=== PATIENT | male | born 1965 | race Caucasian/White ===

== ENCOUNTER → 2020-12-29 15:43 | Outpatient (CLI) | payer OTHER, SELFPAY ==
--- NOTE | 2020-12-29 15:47 | XR_ITS ---
PROCEDURE: XR SHOULDER RT MIN 2V CLINICAL INDICATION: ROTATOR CUFF ARTHROPATHY OF RT SHOULDER COMPARISON: No exams were available for comparison FINDINGS: Minor degenerative changes of the right acromioclavicular joint. The glenohumeral joint is unremarkable. No acute fractures or dislocations. Bone density is normal. No periarticular calcifications. Visualized soft tissues and the right hemithorax are unremarkable. IMPRESSION: No acute fractures or dislocation. Dictated by: Mya Benitez 12/29/2020 16:32 Mya Benitez in [place] 12/29/2020 16:32
== END ==
PROVIDERS: PCP Internal Medicine Adolescent Medicine; Visit Provider Internal Medicine Adolescent Medicine
DX: M12.811 Other specific arthropathies, not elsewhere classified, right shoulder (principal)
CPT/HCPCS: 73030

== ENCOUNTER 2021-02-24 10:00 | Outpatient (RCR) | payer OTHER, SELFPAY ==
--- NOTE | 2021-01-12 12:27 | HMH.PTOPEV ---
PT Outpatient Evaluation Rehab PT Outpatient Evaluation Start: 01/12/21 11:32 Freq: Status: Active Protocol: Document 01/12/21 11:32 VALERIY (Rec: 01/12/21 12:27 PDESERCHANELX [id number]) Electronically Signed By Luciano Cortez, MARCELLE 01/12/21 11:32 Outpatient Therapy Subjective History Subjective History Pt. is a 55 year old male who presents to outpatient PT clinic w/ complaints of chronic and activity dependent RUE anterior shldr. P! of insidious onset since the beginning of this year. Pt. describes his symptoms as a burn that will shoot from the anterior shldr. inferiorly to the elbow. Pt. reports symptoms worsen w/ abduction and reaching behind his back. Pt. reports symptom relief w/ rest(adducted). Recent diagnostic imaging negative per pt. report. Pt. denies having injections for current pathology. Pt. also reports not having any RUE shldr. restrictions. 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 Current medications include Aspirin, Celecoxib, Omeprazole, and Hydrochlorothiazide. PMH includes Obstructive Sleep Apnea, R LBP!, RLE Sciatica, Obesity, A-fib, Lymphedema, Hypertension, and GERD. Chief Complaint Pain,Stiff,Weakness Symptom Type Ache,Sharp,Burning,Shooting Symptoms Relieved By Rest/Positioning Symptoms Aggravated By Physical Activity,Lifting Prior Functional Limitations None Current Functional Limitations Reaching,Lifting,Housework, Dressing,Sleeping Symptom Description Activity Dependent Level of pain today (0-10) 0 Pain scale - at its best (0-10) 0 Pain scale - at its worst (0-10) 5 Shoulder/Elbow Eval Shoulder Objective Measurements Palpation Tenderness tenderness shoulder exam standard right tenderness over the bicipital tendon right shoulder exam standard tenderness over the SA bursa shoulder right exam standard
== END 2021-04-14 09:05 | disposition home or self-care (01) ==
LOC: PT.CARL 10:00
PROVIDERS: PCP Internal Medicine Adolescent Medicine; Visit Provider Internal Medicine Adolescent Medicine
DX: M12.811 Other specific arthropathies, not elsewhere classified, right shoulder (principal)
CPT/HCPCS: 97010; 97014; 97033; 97035; 97110; 97140; 97163; G0283

== ENCOUNTER 2021-04-01 16:54 | Inpatient (IN) | payer OTHER, SELFPAY ==
[2021-04-01 16:54] VITALS: BP 130/62; PULSE 130; RESP 18; TEMP 37.7; O2SAT 94; BMI 51.2
[2021-04-01 17:15] VITALS: BMI 51.2
--- NOTE | 2021-04-01 17:16 | XR_ITS ---
PROCEDURE INFORMATION: Exam: XR Chest Exam date and time: 04/01/2021 5:16 PM Age: 55 years old Clinical indication: Other: Weakness TECHNIQUE: Imaging protocol: XR of the chest. Views: 1 view. COMPARISON: CR XR SHOULDER RT MIN 2V 12/29/2020 3:49 PM FINDINGS: Lungs: Subtle bibasilar opacities seen which may be inflammatory. Pleural spaces: Unremarkable. No pleural effusion. No pneumothorax. Heart/Mediastinum: Unremarkable. No cardiomegaly. Bones/joints: Unremarkable. IMPRESSION: Subtle bibasilar opacities seen which may be inflammatory.
--- NOTE | 2021-04-01 17:31 | ECG_ITS ---
APPROVED REPORT Exam: Resting ECG HR:129 bpm ECG Measurements Heart Rate 129 AXES VT 148 P 21 QRSd 72 QRS -21 QT 298 T 52 QTc 436 Conclusion Sinus tachycardia Poor R wave progression Abnormal ECG Electronically signed by : Michael Gaston MD 04/02/2021 22:29:16
[2021-04-01 17:45] LABS: Coronavirus 19, PCR Not Detected (NotDetected); Influenza A, PCR Not Detected (NotDetected); Influenza B, PCR Not Detected (NotDetected)
[2021-04-01 17:53] LABS: Basophils # 0.1 K/mm3 (0-0.2); Basophils % 0.5 % (0.1-2.0); Eosinophils # 0.1 K/mm3 (0.0-0.4); Eosinophils % 0.4 % (0.1-12.0); Hematocrit 45.4 % (42.0-52.0); Hemoglobin 14.7 g/dL (14.1-18.0); Lymphocytes # 0.9 K/mm3 (0.7-4.5); Lymphocytes % 4.5 % (10-50); Mean Corpuscular HGB Conc 32.3 g/dL (31.8-35.4); Mean Corpuscular Hemoglobin 26.3 pg (27.0-31.2); Mean Corpuscular Volume 81.6 fl (80-94); Mean Platelet Volume 7.5 fl (7.4-10.4); Monocytes # 0.4 K/mm3 (0.1-1.0); Monocytes % 1.8 % (1.7-9.3); Neutrophils # 19.6 K/mm3 (1.8-7.8); Neutrophils % 92.8 % (37.0-80.0); Platelet Count 380 K/mm3 (142-424); Red Blood Count 5.57 M/mm3 (4.60-6.20); Red Cell Distribution Width 15.1 % (11.5-17.5); White Blood Count 21.1 K/mm3 (4.8-10.8)
[2021-04-01 17:54] LABS: Alanine Aminotransferase 45 U/L (12-78); Albumin Level 4.2 g/dl (3.5-5.0); Albumin/Globulin Ratio 1.3 (1.1-1.8); Alkaline Phosphatase 137 U/L (38-126); Anion Gap 12.7 mEq/L (5-15); Aspartate Amino Transferase 40 U/L (17-59); Bilirubin,Total 0.7 mg/dl (0.2-1.3); Blood Urea Nitrogen 16 mg/dl (9-20); Carbon Dioxide 27 mmol/L (22.0-30.0); Chloride 100 mmol/L (98-107); Creatinine Clearance Estimated 85 mL/min (50-200); Estimated Glomerular Filt Rate 63 ml/min (>60); GFR (African American) 77 ML/MIN (>60); Globulin 3.2 g/dL (1.3-3.2); Glucose 192 mg/dl (74-100); Potassium 3.7 mmoL/L (3.5-5.1); Sodium 136 mmol/L (136-145); Total Protein,Serum 7.4 g/dl (6.3-8.2)
[2021-04-01 17:55] LABS: MANUAL DIFFERENTIAL MANUAL DIFFERENTIAL (MANUAL DIFF)
[2021-04-01 17:58] LABS: Strep Scrn Group A (Rapid) Negative (Negative)
[2021-04-01 18:03] LABS: Lactic Acid 3.5 mmol/L (0.7-2.1)
[2021-04-01 18:07] LABS: Troponin I 0.02 ng/ml (0.00-0.034)
--- NOTE | 2021-04-01 18:30 | HMH.EDWEAK ---
ED Disposition Clinical Impression: Pneumonia Disposition: Admitted As Inpatient Condition on Discharge: Good Referrals: Michael Gaston MD [Primary Care Provider] - - Critical Care Critical Care Time: No Attestation: On 04/01/21, the high probability of a clinically significant, sudden or life threatening deterioration of the following system(s) required my full and direct attention, intervention and personal management. The time I documented below is in addition to time spent performing reported procedures but includes the following listed in this critical care notation. Medical Decision Making - Medical Records MR Comment: Bilateral pneumonia and leukocytosis and elevated lactic acid. Call Dr. Gaston and he agreed on admission. Talk to the patient and he agreed on admission. Patient wants to him to be on Rocephin and azithromycin.however he is allergic to penicilline. will switch to Levaquin. - Calvin Inquiry Pt receiving controlled substance: No Calvin was queried for this patient: No Vital Signs: 04/01/21 16:54 04/01/21 19:17 Temperature 99.9 F H Temperature Source Oral Pulse Rate 110 H Pulse Rate [Right] 130 H Respiratory Rate 18 16 Blood Pressure 104/51 L Blood Pressure [Right Arm] 130/62 Blood Pressure Mean [Right Arm] 84 02 Sat by Pulse Oximetry 94 L 96 Oxygen Delivery Method Room Air Room Air - Lab Data Lab Results 04/01/21 17:25: WBC 21.1 H*, RBC 5.57, Hgb 14.7, Hct 45.4, MCV 81.6, MCH 26.3 L, MCHC 32.3, RDW 15.1, Plt Count 380, MPV 7.5, Neut % (Auto) 92.8 H, Lymph % (Auto) 4.5 L, [place] % (Auto) 1.8, Eos % (Auto) 0.4, Baso % (Auto) 0.5, Neut # (Auto) 19.6 H, Lymph # (Auto) 0.9, [place] # (Auto) 0.4, Eos # (Auto) 0.1, Baso # (Auto) 0.1, Total Counted 100, Neutrophils % (Manual) 91 H, Band Neutrophils % 4.0, Lymphocytes % (Manual) 4 L, Monocytes % (Manual) 1 L, Platelet Estimate Normal, RBC Morphology Not Reportable, Spherocytes 3+ 04/01/21 17:25: Sodium 136, Potassium 3.7, Chloride 100, Carbon Dioxide 27, Anion Gap 12.7, BUN 16, Creatinine 1.20, Estimated Creat Clear 85, Estimated GFR 63, Est GFR ( Amer) 77, Glucose 192 H, Calcium 9.0, Total Bilirubin 0.7, AST 40, ALT 45, Alkaline Phosphatase 137 H, Troponin I 0.02, Total Protein 7.4, Albumin 4.2, Globulin 3.2, Albumin/Globulin Ratio 1.3 04/01/21 17:25: Lactate 3.5 H 04/01/21 17:25: Group A Strep Rapid Negative 04/01/21 17:25: SARS-CoV-2 (PCR) Not detected, Influenza A Untype (PCR) Not detected, Influenza Type B (PCR) Not detected Result diagrams: 04/01/21 17:25 04/01/21 17:25 Orders (Tests/Meds): ED MEDICATIONS Generic Name Dose Route Start Last Admin Trade Name Freq PRN Reason Stop Dose Admin Sodium Chloride 1,000 mls @ 999 mls/hr 04/01/21 17:30 04/01/21 17:44 Sod Chlor 0.9% 1000ml Bag IV 04/01/21 18:30 999 mls/hr .Q1H1M SILVERIO Administration Levofloxacin/Dextrose 750 mg in 150 mls @ 100 mls/hr 04/01/21 19:15 04/01/21 19:21 Levofloxacin 750mg/150ml Premix IV 04/15/21 19:14 100 mls/hr Q24H SILVERIO Administration Discontinued Medications Generic Name Dose Route Start Last Admin Trade Name Freq PRN Reason Stop Dose Admin Acetaminophen 650 mg 04/01/21 17:29 04/01/21 17:45 Acetaminophen 325mg Tab PO 04/01/21 17:30 650 mg ONCE ONE Administration ORDERS Category Date Time Status Troponin I Q3H Lab 04/01/21 20:30 Ordered Troponin I Q3H Lab 04/01/21 23:30 Ordered UA [Urinalysis and Microscopic] Stat Lab 04/01/21 17:31 Ordered Blood Culture Stat Micro 04/01/21 17:16 Received Strep Screen Confirmation Stat Micro 04/01/21 17:25 Received Weakness HPI - General Chief complaint: Weakness Stated complaint: weakness Time Seen by Provider: 04/01/21 17:30 Mode of Arrival: Family Vehicle Limitations: No Limitations Description of Symptoms (Recalled from ER Triage Doc. by RN): Patient c/o general weakness and fever for the last two days. Patient denies any SOA, nausea or vomitti
[2021-04-01 18:47] LABS: Lymphocytes % 4 % (10-50); Monocytes % 1 % (2-9); Neutrophils % 91 % (42-76); Platelet Estimate Normal; Spherocytes 3+; Total Cells Counted 100
--- NOTE | 2021-04-01 19:13 | PC.NURSE ---
Paged Dr. Gaston for patient consult
[2021-04-01 19:17] VITALS: BP 104/51; PULSE 110; RESP 16; O2SAT 96
--- NOTE | 2021-04-01 19:56 | PC.NURSE ---
call placed to house for admit. KRISTIN, bilateral pneumonia
[2021-04-01 20:00] VITALS: BP 93/58; PULSE 114; RESP 19; O2SAT 95
[2021-04-01 20:30] VITALS: BP 100/50; PULSE 114; RESP 22; O2SAT 96
--- NOTE | 2021-04-01 20:44 | PC.NURSE ---
Addendum entered by Belinda To RN 04/01/21 21:13: obtained another EKG read NSR Original Note: called to pt room. pt bp 66/45 and diaphoretic. FSBS obtained 182. pt was move to w/c and liter of NS hung and pt given a drink. pt bp up to 100/58 and pt states he feels better
[2021-04-01 20:57] LABS: Troponin I 0.12 ng/ml (0.00-0.034)
[2021-04-01 21:02] VITALS: BP 100/58; PULSE 99; RESP 19; O2SAT 97
--- NOTE | 2021-04-01 21:06 | ECG_ITS ---
APPROVED REPORT Exam: Resting ECG HR:99 bpm ECG Measurements Heart Rate 99 AXES VT 166 P 15 QRSd 76 QRS 28 QT 322 T 12 QTc 413 Conclusion Normal sinus rhythm Normal ECG Electronically signed by : Michael Gaston MD 04/02/2021 22:28:18
[2021-04-01 21:08] LABS: Reflex Lactic Add Lactic Reflex
[2021-04-01 21:19] LABS: POC Glucose,Bedside 182 (70-110)
[2021-04-01 21:43] LABS: Lactic Acid Follow Up (RFLX 1) 4.1 mmol/L (0.7-2.1)
--- NOTE | 2021-04-01 21:43 | PC.NURSE ---
Critical lactic reported to SNEHA Uriostegui. SNEHA Uriostegui reported to DEANDRA Levi MD.
--- NOTE | 2021-04-01 21:56 | PC.NURSE ---
patient arrived to floor @ 21:54.
[2021-04-01 22:47] VITALS: BMI 54.6
--- NOTE | 2021-04-01 23:07 | PC.NURSE ---
Report given to 2nd floor at this time.
[2021-04-01 23:29] LABS: Reflex Lactic (2 hrs) Add Lactic Reflex
[2021-04-01 23:49] VITALS: BP 100/58; PULSE 99; RESP 18; TEMP 37.7; O2SAT 99
[2021-04-02] VITALS (7 sets, daily range): BP systolic 98–121; BP diastolic 49–70; PULSE 75–95; RESP 16–28; TEMP 36.3–37.4; O2SAT 93–98; BMI 55.0
[2021-04-02 00:08] LABS: Lactic Acid Follow up (RFLX 2) 4.9 mmol/L (0.7-2.1)
--- NOTE | 2021-04-02 00:13 | PC.NURSE ---
Critical lactic 4.9 reported to this nurse per Dipak. name and verified
[2021-04-02 01:12] LABS: Troponin I 0.11 ng/ml (0.00-0.034)
[2021-04-02 06:58] LABS: Basophils # 0.1 K/mm3 (0-0.2); Basophils % 0.3 % (0.1-2.0); Eosinophils # 0.1 K/mm3 (0.0-0.4); Eosinophils % 0.2 % (0.1-12.0); Hematocrit 38.9 % (42.0-52.0); Lymphocytes # 0.7 K/mm3 (0.7-4.5); Mean Corpuscular HGB Conc 31.9 g/dL (31.8-35.4); Mean Corpuscular Volume 84.8 fl (80-94); Mean Platelet Volume 7.2 fl (7.4-10.4); Monocytes % 2.7 % (1.7-9.3); Neutrophils # 35.3 K/mm3 (1.8-7.8); Neutrophils % 94.7 % (37.0-80.0); Platelet Count 282 K/mm3 (142-424); Red Blood Count 4.59 M/mm3 (4.60-6.20); Red Cell Distribution Width 15.4 % (11.5-17.5); White Blood Count 37.3 K/mm3 (4.8-10.8)
[2021-04-02 07:02] LABS: MANUAL DIFFERENTIAL MANUAL DIFFERENTIAL (MANUAL DIFF)
[2021-04-02 07:05] LABS: Chloride 102 mmol/L (98-107); Potassium 4.5 mmoL/L (3.5-5.1); Sodium 137 mmol/L (136-145)
[2021-04-02 07:08] LABS: Alanine Aminotransferase 43 U/L (12-78); Albumin Level 3.3 g/dl (3.5-5.0); Albumin/Globulin Ratio 1.1 (1.1-1.8); Alkaline Phosphatase 82 U/L (38-126); Anion Gap 13.5 mEq/L (5-15); Aspartate Amino Transferase 39 U/L (17-59); Bilirubin,Total 0.5 mg/dl (0.2-1.3); Blood Urea Nitrogen 22 mg/dl (9-20); Carbon Dioxide 26 mmol/L (22.0-30.0); Creatinine Clearance Estimated 57 mL/min (50-200); Estimated Glomerular Filt Rate 40 ml/min (>60); GFR (African American) 48 ML/MIN (>60); Globulin 2.9 g/dL (1.3-3.2); Total Protein,Serum 6.2 g/dl (6.3-8.2)
[2021-04-02 07:09] LABS: Glucose 196 mg/dl (74-100)
[2021-04-02 07:11] LABS: Calcium 7.8 mg/dl (8.4-10.2)
[2021-04-02 07:29] LABS: Lymphocytes % 4 % (10-50); Monocytes % 1 % (2-9); Neutrophils % 95 % (42-76); Total Cells Counted 100
[2021-04-02 07:30] LABS: Hypochromasia 1+; Microcytosis 1+; Platelet Estimate Normal
--- NOTE | 2021-04-02 07:40 | P.CONPHA_ITS ---
[facility] Pharmacy VTE Monitoring - Patient Demographics Admission date: 04/01/21 Report Date: 04/02/21 Time: 07:40 Allergies/Adverse Reactions: Patient Allergies Penicillins [PENICILLINS] Allergy (Severe, Verified 02/18/19 15:48) SWELLING Height: 1.91 m Weight: 200.686 kg Patient Problems: Current Active Problems Pneumonia (Acute) - VTE Risk Labs: VTE Related Lab Results Hgb 14.7 g/dL (14.1-18.0) 04/01/21 17:25 Hct 38.9 % (42.0-52.0) L 04/02/21 06:35 Plt Count 282 K/mm3 (142-424) D 04/02/21 06:35 BUN 22 mg/dl (9-20) H D 04/02/21 06:35 Creatinine 1.80 mg/dl (0.66-1.25) H D 04/02/21 06:35 Estimated Creat Clear 57 mL/min (50-200) 04/02/21 06:35 Was VTE Risk Assessment Performed: Yes VTE Score: 3 VTE Risk Level: Low Risk Clinical Trial Participant: No - Prophylaxis VTE Prophylaxis Ordered?: Yes Types of VTE Prophylaxis: TEDS Knee High
[2021-04-02 07:44] LABS: Hemoglobin 12.4 g/dL (14.1-18.0)
--- NOTE | 2021-04-02 08:39 | CT_ITS ---
PROCEDURE: CT ANGIO CHEST PE PROTOCOL CLINCIAL INDICATION: dyspnea, hypoxia COMPARISON: CR XR CHEST PORTABLE from 04/01/2021 TECHNIQUE: IV Contrast: 70ML Isovue 370 Axial images obtained with sagittal and coronal reformats. All CT scans at the facility use one or more dose reduction, viz: automated exposure control, ma/kV adjustment per patient size (including targeted exams where dose is matched to indication, i.e. head), or iterative reconstruction technique. FINDINGS: Exam is limited technically with poor pulmonary arterial opacification. No central pulmonary embolus is evident. Peripheral pulmonary arteries are not adequately opacified. No evidence of aortic aneurysm or dissection. No mediastinal or hilar mass. Motion artifact somewhat obscures fine detail the lungs. No lobar consolidation or collapse. No effusions. Mild atelectatic changes are present in the lower lobes. There is diffuse fatty liver infiltration. IMPRESSION: No evidence central pulmonary embolus. Peripheral pulmonary arteries not adequately opacified Mild atelectatic changes Dictated by: Landen Abreu MD 04/02/2021 10:46 Landen Abreu MD in [place] 04/02/2021 10:46
--- NOTE | 2021-04-02 08:43 | HMH.HP ---
*Admission Date: 04/01/21 *Chief complaint: Weakness and sudden onset of chills *History of present illness: 55-year-old white male with hypertension, morbid obesity with BMI greater than 55 and history of SVT in the past who presented to the emergency department yesterday afternoon with a sudden onset of internal chills and shaking. He was also extremely weak. He had been getting ready to travel to [facility] but decided he felt too badly and came to the emergency department. In the emergency department he was found to have leukocytosis, lactic acidosis, and bilateral lower lobe hazy infiltrates. Met criteria for sepsis, admitted to hospital. Blood pressure was stable. Kidney function slightly worse over baseline. I was consulted and agreed for admission, I requested that community-acquired pneumonia protocol be started with ceftriaxone and azithromycin but patient was admitted with levofloxacin ordered for antibiotics. This morning the patient feels a little better, noted that he had very minimal urine output through the day yesterday until after his second bag of IV fluids. [facility] History I have reviewed the patient's past medical history: Yes Medical History: Reports:: Hypertension Denies:: Cancer, Diabetes Mellitus Type 1, Diabetes Mellitus Type 2, MRSA *Have you ever received a pneumonia vaccine?: No *Have you received a flu vaccine this season?: No Other Surgeries: Yes: No Previous Surgery Amputation: No Fractures: No - *Social History Last grade of school completed: Some college Smoking Status: Never smoker Alcohol Intake: never *Occupational Status:: employed Housing: house Household Members: spouse, children *Travel in the last 8 weeks: None Family Hx:: Cancer, Coronary Artery Disease, Diabetes, Heart Attack, Hyperlipidemia, Hypertension, Stroke Review of Systems - Review of Systems Review of systems:: pertinent systems reviewed and negative unless documented below Meds Home Medications Medication Instructions Recorded Confirmed Type Aspirin [Aspirin 325mg Tab] 325 mg PO DAILY 04/01/21 04/01/21 History Celecoxib [Celebrex 200mg cap] 200 mg PO BID 04/01/21 04/01/21 History Omeprazole [Omeprazole 40mg 40 mg PO DAILY 04/01/21 04/01/21 History Capsule] Valsartan/Hydrochlorothiazide 1 each PO DAILY 04/01/21 04/01/21 History [Valsartan-Hctz 160-25 mg Tab] Allergies Allergy/AdvReac Type Severity Reaction Status Date / Time Penicillins [PENICILLINS] Allergy Severe SWELLING Verified 02/18/19 15:48 Exam Vital signs and Labs for Last 24 Hours: Temp Pulse Resp BP Pulse Ox 98.7 F 88 18 115/70 97 04/02/21 08:00 04/02/21 08:00 04/02/21 08:00 04/02/21 08:00 04/02/21 08:00 Laboratory Results - last 24 hr 04/01/21 17:25: WBC 21.1 H*, RBC 5.57, Hgb 14.7, Hct 45.4, MCV 81.6, MCH 26.3 L, MCHC 32.3, RDW 15.1, Plt Count 380, MPV 7.5, Neut % (Auto) 92.8 H, Lymph % (Auto) 4.5 L, [place] % (Auto) 1.8, Eos % (Auto) 0.4, Baso % (Auto) 0.5, Neut # (Auto) 19.6 H, Lymph # (Auto) 0.9, [place] # (Auto) 0.4, Eos # (Auto) 0.1, Baso # (Auto) 0.1, Total Counted 100, Neutrophils % (Manual) 91 H, Band Neutrophils % 4.0, Lymphocytes % (Manual) 4 L, Monocytes % (Manual) 1 L, Platelet Estimate Normal, RBC Morphology Not Reportable, Spherocytes 3+ 04/01/21 17:25: Sodium 136, Potassium 3.7, Chloride 100, Carbon Dioxide 27, Anion Gap 12.7, BUN 16, Creatinine 1.20, Estimated Creat Clear 85, Estimated GFR 63, Est GFR ( Amer) 77, Glucose 192 H, Calcium 9.0, Total Bilirubin 0.7, AST 40, ALT 45, Alkaline Phosphatase 137 H, Troponin I 0.02, Total Protein 7.4, Albumin 4.2, Globulin 3.2, Albumin/Globulin Ratio 1.3 04/01/21 17:25: Lactate 3.5 H 04/01/21 17:25: Group A Strep Rapid Negative 04/01/21 17:25: SARS-CoV-2 (PCR) Not detected, Influenza A Untype (PCR) Not detected, Influenza Type B (PCR) Not detected 04/01/21 20:28: Troponin I 0.12 H 04/01/21 20:44: POC Glucose 182 H 04/01/21 21:26: Lactate 4.1 H 03/22
--- NOTE | 2021-04-02 09:10 | HMH.ITSTN ---
IN SHOWER 9:08 AM FLOOR WILL CALL WHEN HES OUT SO WE CAN DO HIS CT
[2021-04-02 09:43] LABS: Adenovirus,PCR Not Detected (NotDetected); Bordetella Pertussis Not Detected (NotDetected); Chlamydophila Pneumoniae, PCR Not Detected (NotDetected); Coronavirus 229E Not Detected (NotDetected); Coronavirus NL63 Not Detected (NotDetected); Coronavirus OC43 Not Detected (NotDetected); Coronovirus HKU1,PCR Not Detected (NotDetected); Human Metapneumovirus Not Detected (NotDetected); Influenza A, PCR Not Detected (NotDetected); Influenza AH1, 2009 Not Detected (NotDetected); Influenza AH1, PCR Not Detected (NotDetected); Influenza AH3,PCR Not Detected (NotDetected); Influenza B, PCR Not Detected (NotDetected); Mycoplasma Pneumoniae, PCR Not Detected (NotDetected); Parainfluenza 1, PCR Not Detected (NotDetected); Parainfluenza 2, PCR Not Detected (NotDetected); Parainfluenza 3, PCR Not Detected (NotDetected); Parainfluenza 4, PCR Not Detected (NotDetected); Respiratory Syncytial Virus Not Detected (NotDetected); Rhinovirus/Enterovirus Not Detected (NotDetected)
--- NOTE | 2021-04-02 10:20 | HMH.PHAINT ---
clarified home medication list using list from Dr Gaston's office
--- NOTE | 2021-04-02 14:56 | PC.NURSE ---
No acute changes. Remains on room air. Lungs CTA. HR regular. +3 pitting edema noted in LLE, +1 edema noted to RLE. Abdomen soft, large, non-tender. Independent w/ adl's. Pt showered this AM. remains @ bedside. C/o chronic back pain earlier this shift. Medicated per OCT. No further needs. Call eze w/in reach.
--- NOTE | 2021-04-03 03:41 | PC.NURSE ---
No acute changes overnight. Pt A&O. No c/o pain this shift. Lungs CTA, on room air. Pt able to ambulate independently to the BR and make needs known to staff. IV patent, NS @ 200ml/hr. VSS, call light in reach, no concerns at this time.
[2021-04-03 07:36] LABS: Chloride 104 mmol/L (98-107); Sodium 137 mmol/L (136-145)
[2021-04-03 07:37] LABS: Potassium 3.9 mmoL/L (3.5-5.1)
[2021-04-03 07:39] LABS: Alanine Aminotransferase 73 U/L (12-78); Alkaline Phosphatase 109 U/L (38-126); Anion Gap 9.9 mEq/L (5-15); Aspartate Amino Transferase 71 U/L (17-59); Bilirubin,Total 0.3 mg/dl (0.2-1.3); Blood Urea Nitrogen 17 mg/dl (9-20); Carbon Dioxide 27 mmol/L (22.0-30.0); Creatinine Clearance Estimated 93 mL/min (50-200); Estimated Glomerular Filt Rate 70 ml/min (>60); GFR (African American) 85 ML/MIN (>60)
[2021-04-03 07:40] LABS: Albumin Level 3.3 g/dl (3.5-5.0); Albumin/Globulin Ratio 1.1 (1.1-1.8); Calcium 7.8 mg/dl (8.4-10.2); Globulin 3.1 g/dL (1.3-3.2); Glucose 135 mg/dl (74-100); Total Protein,Serum 6.4 g/dl (6.3-8.2)
[2021-04-03 07:43] LABS: Basophils # 0.1 K/mm3 (0-0.2); Basophils % 0.4 % (0.1-2.0); Eosinophils % 0.1 % (0.1-12.0); Hematocrit 35.3 % (42.0-52.0); Hemoglobin 11.6 g/dL (14.1-18.0); Lymphocytes # 1.3 K/mm3 (0.7-4.5); Lymphocytes % 4.6 % (10-50); Mean Corpuscular HGB Conc 32.8 g/dL (31.8-35.4); Mean Corpuscular Hemoglobin 26.8 pg (27.0-31.2); Mean Corpuscular Volume 81.9 fl (80-94); Mean Platelet Volume 7.5 fl (7.4-10.4); Monocytes % 3.5 % (1.7-9.3); Neutrophils # 24.8 K/mm3 (1.8-7.8); Neutrophils % 91.3 % (37.0-80.0); Platelet Count 280 K/mm3 (142-424); Red Blood Count 4.31 M/mm3 (4.60-6.20); Red Cell Distribution Width 15.3 % (11.5-17.5); White Blood Count 27.2 K/mm3 (4.8-10.8)
[2021-04-03 07:48] LABS: MANUAL DIFFERENTIAL MANUAL DIFFERENTIAL (MANUAL DIFF)
[2021-04-03 08:00] VITALS: BP 118/74; PULSE 92; RESP 24; TEMP 37.5; O2SAT 95
--- NOTE | 2021-04-03 08:55 | HMH.ACPN2 ---
Internal Medicine - PN: Subj *Date: 04/03/21 *Time: 09:22 Interval history: 55-year-old male with pneumonia and GBS bacteremia. Overall did well overnight. Afebrile this morning. Normotensive. Denies any nausea, vomiting, shortness of breath. Stable on room air. Complaining of worsening swelling in his leg with the IV fluids. Tolerating good p.o. intake. Voiding independently. Exam Vital signs and Labs for Last 24 Hours: Temp Pulse Resp BP Pulse Ox 97.8 F 77 16 121/68 95 04/02/21 23:49 04/02/21 23:49 04/02/21 23:49 04/02/21 23:49 04/02/21 23:49 Laboratory Results - last 24 hr 04/02/21 09:35: Chlamy pneumoniae PCR Not detected, Adenovirus (PCR) Not detected, B. pertussis DNA (PCR) Not detected, Coronavirus OC43 (PCR) Not detected, Coronavirus HKU1 (PCR) Not detected, Coronavirus 229E (PCR) Not detected, Coronavirus NL63 (PCR) Not detected, Human Metapneumovir PCR Not detected, Influenza A (H1) PCR Not detected, Influ A (H1N1/09) PCR Not detected, Influenza A (H3) PCR Not detected, Influenza Type A (PCR) Not detected, Influenza Type B (PCR) Not detected, M. pneumoniae (PCR) Not detected, Parainfluenza 1 (PCR) Not detected, Parainfluenza 2 (PCR) Not detected, Parainfluenza 3 (PCR) Not detected, Parainfluenza 4 (PCR) Not detected, RSV (PCR) Not detected, Entero/Rhino (PCR) Not detected 04/03/21 06:59: WBC 27.2 H* D, RBC 4.31 L, Hgb 11.6 L, Hct 35.3 L, MCV 81.9, MCH 26.8 L, MCHC 32.8, RDW 15.3, Plt Count 280, MPV 7.5, Neut % (Auto) 91.3 H, Lymph % (Auto) 4.6 L, [place] % (Auto) 3.5, Eos % (Auto) 0.1, Baso % (Auto) 0.4, Neut # (Auto) 24.8 H, Lymph # (Auto) 1.3, [place] # (Auto) 1.0, Eos # (Auto) 0.0, Baso # (Auto) 0.1 04/03/21 06:59: Sodium 137, Potassium 3.9, Chloride 104, Carbon Dioxide 27, Anion Gap 9.9, BUN 17, Creatinine 1.10 D, Estimated Creat Clear 93, Estimated GFR 70, Est GFR ( Amer) 85 D, Glucose 135 H, Calcium 7.8 L, Total Bilirubin 0.3, AST 71 H D, ALT 73 D, Alkaline Phosphatase 109, Total Protein 6.4, Albumin 3.3 L, Globulin 3.1, Albumin/Globulin Ratio 1.1 I & O for Last 24 hours: Intake & Output 03/31/21 04/01/21 04/02/21 04/03/21 23:59 23:59 23:59 23:59 Intake Total 6233 / 6233 Balance 6233 / 6233 Weight 198.39 kg 200.686 kg Microbiology Reports for the Last 24 Hours: Microbiology 04/01/21 17:16 Blood Blood Culture - Preliminary Gram Positive Cocci 04/01/21 17:16 Blood Blood Culture - Preliminary Gram Positive Cocci Narrative: - Constitutional no acute distress, morbidly obese - *Routine HEENT Exam Head: Present: normocephalic Eye: Present: EOMI, PERRL ENT: Present: mucous membranes moist - *Routine Neck Exam Present: supple. Absent: lymphadenopathy - *Routine Respiratory Exam Present: CTA bilaterally - *Routine Cardiovascular Exam Present: RRR - *Routine Abdominal Exam Present: soft, normoactive bowel sounds. Absent: tenderness - *Routine Extremities Exam Erythema of left lower extremity, slightly warm. 2+ edema. - *Routine Skin Exam Present: warm. Absent: rash - *Routine Neurological Exam Present: alert, oriented X3 Assessment and Plan (1) Streptococcal sepsis Status: Acute Category: Medical Code(s): A40.9 - Streptococcal sepsis, unspecified (2) Acute kidney injury Status: Acute Category: Medical Code(s): N17.9 - Acute kidney failure, unspecified (3) Pneumonia Status: Acute Category: Medical Code(s): J18.9 - Pneumonia, unspecified organism - Assessment and plan all Dx Assessment and Plan for all problems:: 55 yo M with pneumonia, edema, bacteremia and GOMEZ. 1. Blood cultures growing strep agalactiae -Continue with therapy of ceftriaxone and azithromycin. Sensitivities pending still. -We will de-escalate antibiotics when appropriate, likely transition oral regimen for discharge home if showing continued medical stability and appropriate sensitivi
[2021-04-03 10:34] LABS: Eosinophils % 2 % (0-3); Hypochromasia 1+; Lymphocytes % 4 % (10-50); Monocytes % 2 % (2-9); Neutrophils % 82 % (42-76); Platelet Estimate B; Total Cells Counted 100
[2021-04-03 10:35] LABS: Microcytosis 1+
[2021-04-03 12:00] VITALS: BP 112/63; PULSE 85; RESP 24; TEMP 37.2; O2SAT 97
[2021-04-03 13:30] VITALS: BMI 55.0
--- NOTE | 2021-04-03 14:43 | SW/DCPLANNER ---
PATIENT PRESENTED INTO THE HOSPITAL WITH WEAKNESS AND SUDDEN ONSET OF CHILLS... PATIENT RESIDES AT HOME WITH HIS AND WORKS FULLTIME.. THERE ARE NO ISSUES WITH HIM FOR DISCHARGE PLANNING BUT IT COULD BE HE MAY NEED IV ANTIBIOTIC THERAPY ONCE WE GET BLOOD CULTURES BACK... DISPOSITION COULD BE SOON OR TUESDAY...
[2021-04-03 15:12] VITALS: BP 131/85; PULSE 86; RESP 24; TEMP 36.7; O2SAT 97
--- NOTE | 2021-04-03 18:40 | INFXCTL.NOTE ---
HE IS AOX4, ABLE TO MAKE NEEDS KNOWN TO STAFF, HE HAS BEEN UP TO CHAIR T/O SHIFT, SWELLING AND REDNESS ERYTHEMA NOTED TO LEFT LOWER EXTREMITY, PT HAS BEEN ELEVATING T/O AHIFT, HE HAS NOT REQUIRED O2 SUPPORT, TOLERATING DIET WELL, NO NEEDS VOICED, NO ACUTE CHANGES
[2021-04-03 20:00] VITALS: BP 132/72; PULSE 77; RESP 18; TEMP 37.4; O2SAT 95
[2021-04-03 23:55] VITALS: BP 118/66; PULSE 66; RESP 18; TEMP 36.6; O2SAT 92
[2021-04-04 03:39] VITALS: BP 120/68; PULSE 79; RESP 16; TEMP 37.1; O2SAT 95
[2021-04-04 05:25] VITALS: BMI 55.4
--- NOTE | 2021-04-04 06:01 | PC.NURSE ---
No acute changes overnight, PT A&O. pt denied any pain t/o the shift. Pt ambulating independently to BR. IV patent and saline locked at this time. Pt able to make needs known to staff. VSS, call light in reach, no concerns at this time. will continue to monitor
[2021-04-04 07:10] LABS: Basophils # 0.1 K/mm3 (0-0.2); Basophils % 0.7 % (0.1-2.0); Eosinophils # 0.1 K/mm3 (0.0-0.4); Eosinophils % 0.9 % (0.1-12.0); Hemoglobin 11.4 g/dL (14.1-18.0); Lymphocytes # 1.8 K/mm3 (0.7-4.5); Lymphocytes % 12.5 % (10-50); Mean Corpuscular HGB Conc 31.6 g/dL (31.8-35.4); Mean Corpuscular Hemoglobin 26.3 pg (27.0-31.2); Mean Corpuscular Volume 83.4 fl (80-94); Mean Platelet Volume 7.7 fl (7.4-10.4); Monocytes # 0.6 K/mm3 (0.1-1.0); Monocytes % 4.3 % (1.7-9.3); Neutrophils # 11.8 K/mm3 (1.8-7.8); Neutrophils % 81.5 % (37.0-80.0); Platelet Count 229 K/mm3 (142-424); Red Blood Count 4.32 M/mm3 (4.60-6.20); Red Cell Distribution Width 15.3 % (11.5-17.5); White Blood Count 14.5 K/mm3 (4.8-10.8)
[2021-04-04 07:16] LABS: Chloride 102 mmol/L (98-107); Potassium 3.7 mmoL/L (3.5-5.1); Sodium 140 mmol/L (136-145)
[2021-04-04 07:19] LABS: Blood Urea Nitrogen 13 mg/dl (9-20); Creatinine Clearance Estimated 102 mL/min (50-200); Estimated Glomerular Filt Rate 78 ml/min (>60); GFR (African American) 95 ML/MIN (>60)
[2021-04-04 07:20] LABS: Anion Gap 9.7 mEq/L (5-15); Calcium 8.1 mg/dl (8.4-10.2); Carbon Dioxide 32 mmol/L (22.0-30.0); Glucose 137 mg/dl (74-100)
--- NOTE | 2021-04-04 07:35 | HMH.DCSUM ---
General - General Admission date:: 04/01/21 Discharge date: 04/04/21 HPI HPI: 55-year-old white male with hypertension, morbid obesity with BMI greater than 55 and history of SVT in the past who presented to the emergency department yesterday afternoon with a sudden onset of internal chills and shaking. He was also extremely weak. He had been getting ready to travel to [facility] but decided he felt too badly and came to the emergency department. In the emergency department he was found to have leukocytosis, lactic acidosis, and bilateral lower lobe hazy infiltrates. Met criteria for sepsis, admitted to hospital. Blood pressure was stable. Kidney function slightly worse over baseline. I was consulted and agreed for admission, I requested that community-acquired pneumonia protocol be started with ceftriaxone and azithromycin but patient was admitted with levofloxacin ordered for antibiotics. This morning the patient feels a little better, noted that he had very minimal urine output through the day yesterday until after his second bag of IV fluids. Hospital Course Hospital Course: Patient was admitted, placed on broad-spectrum antibiotics for sepsis. Blood cultures quickly returned showing group B streptococcus, coverage was narrowed to cephalosporins given his penicillin allergy. Source of infection was thought to be his leg, specifically the left calf which suffers from obesity related edema and has been red and swollen lately. Repeat cultures are negative. Acute kidney injury improved with fluids and sensitivity panels returned showing sensitivity to cephalosporins. This morning the patient was doing well, white count was improving. Acute kidney injury had resolved. Patient will be discharged home on ceftriaxone, mupirocin I we will see him in the office very quickly and make referral for lymphedema clinic. Objective Vital signs: Temp Pulse Resp BP Pulse Ox 98.7 F 79 16 120/68 95 04/04/21 03:39 04/04/21 03:39 04/04/21 03:39 04/04/21 03:39 04/04/21 03:39 no acute distress - *Routine HEENT Exam Head: Present: normocephalic Eye: Present: EOMI, PERRL ENT: Present: mucous membranes moist - *Routine Neck Exam Present: supple - *Routine Respiratory Exam Present: CTA bilaterally - *Routine Cardiovascular Exam Present: RRR - *Routine Abdominal Exam Present: soft, normoactive bowel sounds. Absent: tenderness - *Routine Extremities Exam Present: edema. Absent: cyanosis, clubbing Comments: Mild bilateral edema with improving redness on the anterior left ambrocio - *Routine Skin Exam Present: warm. Absent: rash - Detailed Eye Exam Eyelids: Bilateral normal inspection Results Labs on day of discharge: Labs from last 24 hours 04/04/21 04/04/21 04/03/21 06:30 06:30 06:59 WBC 14.5 H D RBC 4.32 L Hgb 11.4 L Hct 36.0 L MCV 83.4 MCH 26.3 L MCHC 31.6 L RDW 15.3 Plt Count 229 MPV 7.7 Neut % (Auto) 81.5 H Lymph % (Auto) 12.5 [place] % (Auto) 4.3 Eos % (Auto) 0.9 Baso % (Auto) 0.7 Neut # (Auto) 11.8 H Lymph # (Auto) 1.8 [place] # (Auto) 0.6 Eos # (Auto) 0.1 Baso # (Auto) 0.1 Total Counted Neutrophils % (Manual) Band Neutrophils % Lymphocytes % (Manual) Monocytes % (Manual) Eosinophils % (Manual) Basophils % (Manual) Metamyelocytes % Platelet Estimate Hypochromasia Microcytosis Sodium 140 137 Potassium 3.7 3.9 Chloride 102 104 Carbon Dioxide 32 H 27 Anion Gap 9.7 9.9 BUN 13 17 Creatinine 1.00 1.10 D Estimated Creat Clear 102 93 Estimated GFR 78 70 Est GFR ( Amer) 95 85 D Glucose 137 H 135 H Calcium 8.1 L 7.8 L Total Bilirubin 0.3 AST 71 H D ALT 73 D Alkaline Phosphatase 109 Total Protein 6.4 Albumin 3.3 L Globulin 3.1 Albumin/Globulin Ratio 1.1 04/03/21 06:59 WBC 27.2 H* D RBC
[2021-04-04 07:57] VITALS: BP 125/72; PULSE 68; RESP 20; TEMP 36.8; O2SAT 94
== END 2021-04-04 11:15 | disposition home or self-care (01) | DRG 871 ==
LOC: ER 19:14 → 2ND 04-02 07:20
PROVIDERS: Internal Medicine Adolescent Medicine; Admitting Provider Internal Medicine Adolescent Medicine; Emergency Provider Internal Medicine; PCP Internal Medicine Adolescent Medicine; Visit Provider Internal Medicine Adolescent Medicine
DX: A40.8 Other streptococcal sepsis (principal); J18.9 Pneumonia, unspecified organism; Z68.43 Body mass index [BMI] 50.0-59.9, adult; N17.9 Acute kidney failure, unspecified; Z20.822 Contact with and (suspected) exposure to COVID-19; E66.9 Obesity, unspecified; Z85.828 Personal history of other malignant neoplasm of skin
CPT/HCPCS: 36415; 71045; 71275; 80048; 80053; 82962; 83605; 84484; 85007; 85025; 87040; 87077; 87186; 87430; 87486; 87581; 87633; 87798; 93005; 96365; 96366; 96367; 99284; J0456; J1956; Q9967; U0003

== ENCOUNTER → 2021-04-08 07:56 | Outpatient (CLI) | payer OTHER, SELFPAY ==
--- NOTE | 2021-04-08 08:01 | CA_ITS ---
APPROVED REPORT Left Lower Extremity Venous Study for DVT. Expressive Therapist: CT Indications Lower Extremity Pain: Lower Extremity Edema: Left EDEMA, RED, ANGRY LLE, LYMPHEDEMA PT 6'3 WT 430LBS Risk Factors Obesity Medications Aspirin 325MG Vein Imaging CFV (L): compressive, spontaneous, phasic, augmentation SFJ (L): compressive, spontaneous, phasic, augmentation FEM (L): compressive, spontaneous, phasic, augmentation POP (L): compressive, spontaneous, phasic, augmentation DFV (L): compressive, spontaneous, phasic, augmentation PTV (L): Small portion visualized compressive, spontaneous, phasic, augmentation GSV (L): compressive, spontaneous, phasic, augmentation SSV (L): Not Visualized Peroneals (L):Not Visualized GAS (L): compressive, spontaneous, phasic, augmentation Findings LLE negative for DVT/SVT. Vesssels compressible Limited images due to body habatius. Mildly prominent left inguinal lymph node 5x1.3 cm Conclusion LLE negative for DVT/SVT. Vesssels compressible Limited images due to body habatius. Electronically signed by : Landen Abreu MD 04/08/2021 17:57:28
== END ==
PROVIDERS: PCP Internal Medicine Adolescent Medicine; Visit Provider Internal Medicine Adolescent Medicine
DX: I89.0 Lymphedema, not elsewhere classified (principal); A49.1 Streptococcal infection, unspecified site
CPT/HCPCS: 93971

== ENCOUNTER → 2021-04-14 16:54 | Outpatient (CLI) | payer OTHER, SELFPAY ==
--- NOTE | 2021-04-14 17:03 | MR_ITS ---
PROCEDURE: MR SHOULDER RT WO CON CLINICAL INDICATION: ROTATOR CUFF ARTHROPATHY Shoulder pain COMPARISON: CR XR SHOULDER RT MIN 2V from 12/29/2020 TECHNIQUE: Routine multiplanar multi echo sequences are performed without gadolinium enhancement. FINDINGS: Hypertrophic changes are present at the acromioclavicular joint causing impingement upon the musculotendinous junction of the supraspinatus tendon. There is mild subacromial stenosis. No evidence of rotator cuff tear. No obvious labral tear. The bicipital tendon is in place. There is a small amount fluid within the bicipital tendon sheath. Small area of subcortical increased T2 signal is present in the humeral head laterally. There are mild osteoarthritic changes the glenohumeral joint with slightly high-riding humeral head.. Minimal amount of fluid noted in the subcoracoid region. IMPRESSION: 1. No evidence of rotator cuff tear. 2. Acromioclavicular arthropathy/hypertrophy with impingement upon the anterior aspect of the musculotendinous junction of the supraspinatus tendon 3. Tenosynovitis of the bicipital tendon sheath 4. Osteoarthritic changes of the glenohumeral joint and acromioclavicular joint with a minimal amount of subcortical edema of the humeral head laterally which may be secondary to the arthropathy. Dictated by: Landen Abreu MD 04/16/2021 08:15 Landen Abreu MD in [place] 04/16/2021 08:15
== END ==
PROVIDERS: PCP Internal Medicine Adolescent Medicine; Visit Provider Internal Medicine Adolescent Medicine
DX: M12.811 Other specific arthropathies, not elsewhere classified, right shoulder (principal)
CPT/HCPCS: 73221

== ENCOUNTER 2021-05-08 13:00 | Outpatient (RCR) | payer OTHER, SELFPAY ==
--- NOTE | 2021-04-09 15:08 | HMH.PTOPWND ---
Rehab Outpt Wound Evaluation Rehab OP Wound Evaluation Start: 04/09/21 13:57 Freq: Status: Active Protocol: Document 04/09/21 14:40 PHOKRISTI (Rec: 04/09/21 15:08 PHORNE [id number]) Electronically Signed By Russ Mendiola, PT 04/09/21 14:40 Subjective/History History History Pt is 55 yowm who presents with c/o L LE edema x 1-2 wks with insidious onset of symptoms. He reports onset was very fast with L LE redness, pain, and warmth. He was admitted to the hospital and treated for sepsis. He is now continuing oral abx and feeling somewhat better, but L LE remains sore. US was neg for DVT. PMH: Prior severe injury to L LE in childhood, HTN. Subjective Subjective He reports pain now 3/10 in the L LE, was 8/10 at worst. He reports 2-3 other similar episodes with the same leg over the past 20-30 yrs. Lymphedema Eval Classification of Lymphedema Secondary Lymphedema Yes Stemmer's sign Stemmer's Sign no Stage of Lymphedema Lymphedema stages Stage II (Pitting edema, increased fibrosis w/ decreased pitting) Skin Changes Dry Skin Yes Papillomatosis Yes Redness Yes Discoloration of Skin Yes Other Changes Yes Pain Scale Pain Scale (0-10) 3 Affected Extremities Areas Affected by Lymphedema/Edema Left Lower Extremity Manual Lymphatic Drainage Treatment Area MLD Treatment Area Left Lower Extremity Wound Problems/Impairments Impairments Problems/Impairmments Palpation Tenderness,Increased Edema,Lymphedema Present, Subjective C/O Pain,Impaired Self Care/Self Management Prognosis Rehab Potential Good Clinical Impression Consistent with Diagnosis Yes Short Term Goals Number of Weeks 4 Decreased Palpation Tenderness Yes: 1/4 Decrease Edema Yes Decrease Subjective C/O Pain Yes: 2/10 Patient to Understand Lymphedema Yes Treatment and Exercises Wet Pour Mixer Goals Number of Weeks 8 Decreased Palpation Tenderness Yes: 0/4 Decrease Lymphedema Yes Decrease Subj
== END 2021-05-08 13:05 | disposition home or self-care (01) ==
LOC: PT 13:00
PROVIDERS: Visit Provider Internal Medicine Adolescent Medicine
DX: I89.0 Lymphedema, not elsewhere classified (principal)
CPT/HCPCS: 97140; 97162; 97760

== ENCOUNTER → 2021-07-10 18:56 | Outpatient (CLI) | payer OTHER, SELFPAY ==
[2021-07-10 19:49] LABS: Chloride 101 mmol/L (98-107); Potassium 3.8 mmoL/L (3.5-5.1); Sodium 140 mmol/L (136-145)
[2021-07-10 19:51] LABS: Alanine Aminotransferase 26 U/L (12-78); Aspartate Amino Transferase 32 U/L (17-59); Blood Urea Nitrogen 15 mg/dl (9-20); Estimated Glomerular Filt Rate 78 ml/min (>60); GFR (African American) 95 ML/MIN (>60)
[2021-07-10 19:52] LABS: Albumin/Globulin Ratio 1.3 (1.1-1.8); Alkaline Phosphatase 117 U/L (38-126); Anion Gap 10.8 mEq/L (5-15); Bilirubin,Total 0.3 mg/dl (0.2-1.3); Calcium 8.7 mg/dl (8.4-10.2); Carbon Dioxide 32 mmol/L (22.0-30.0); Chol/HDL Ratio 6.1 (1-3.5); Cholesterol 209 mg/dl (140-200); Globulin 3.1 g/dL (1.3-3.2); Glucose 131 mg/dl (74-100); HDL Cholesterol 34 mg/dl (40-60); Total Protein,Serum 7.1 g/dl (6.3-8.2); Triglycerides 171 mg/dl (30-150); VLDL Cholesterol 34 mg/dL (0-40)
[2021-07-10 19:54] LABS: Basophils # 0.2 K/mm3 (0-0.2); Basophils % 1.7 % (0.1-2.0); Eosinophils # 0.5 K/mm3 (0.0-0.4); Eosinophils % 4.9 % (0.1-12.0); Hematocrit 46.4 % (42.0-52.0); Hemoglobin 14.9 g/dL (14.1-18.0); Lymphocytes # 2.2 K/mm3 (0.7-4.5); Lymphocytes % 20.4 % (10-50); Mean Corpuscular HGB Conc 32.1 g/dL (31.8-35.4); Mean Corpuscular Hemoglobin 27.4 pg (27.0-31.2); Mean Corpuscular Volume 85.3 fl (80-94); Mean Platelet Volume 8.3 fl (7.4-10.4); Monocytes # 0.5 K/mm3 (0.1-1.0); Monocytes % 4.6 % (1.7-9.3); Neutrophils # 7.5 K/mm3 (1.8-7.8); Neutrophils % 68.3 % (37.0-80.0); Platelet Count 424 K/mm3 (142-424); Red Blood Count 5.44 M/mm3 (4.60-6.20); Red Cell Distribution Width 14.6 % (11.5-17.5); White Blood Count 10.9 K/mm3 (4.8-10.8)
[2021-07-10 20:03] LABS: Direct LDL Cholesterol 145.04 mg/dL (100-129)
[2021-07-10 22:08] LABS: Hemoglobin A1C 6.4 % (4.0-6.0)
== END ==
PROVIDERS: Visit Provider Nurse Practitioner Family
DX: E11.9 Type 2 diabetes mellitus without complications (principal); D64.9 Anemia, unspecified
CPT/HCPCS: 80053; 80061; 83036; 85025

== ENCOUNTER → 2021-08-10 08:40 | Outpatient (CLI) | payer OTHER, SELFPAY | PROVIDERS: Visit Provider Surgery | DX: Z01.812 Encounter for preprocedural laboratory examination (principal); Z11.52 Encounter for screening for COVID-19; Z12.11 Encounter for screening for malignant neoplasm of colon | CPT/HCPCS: C9803; U0003; U0005 ==

== ENCOUNTER 2021-08-12 09:11 | Day surgery (SDC) | payer OTHER, SELFPAY ==
[2021-08-10 10:17] VITALS: BMI 50.3
[2021-08-12 09:25] VITALS: BP 189/91; PULSE 71; RESP 18; TEMP 36.3; O2SAT 97
[2021-08-12 09:41] VITALS: O2SAT 97
--- NOTE | 2021-08-12 10:13 | HMH.SCOPE ---
- Procedure: Date: 08/12/21 Patient Date of :: 1965 Procedure Performed:: Total colonoscopy with polypectomy by snare Indications:: Patient is a 55-year-old with a history of hypertension, BMI [address] Michael Gaston for initial screening colonoscopy. Performing Provider:: Sreedhar Frank MD Referring Provider:: Michael Gaston MD Sedation:: MAC sedation Procedure:: Patient was taken to endoscopy procedure room. He was positioned in lateral decubitus position. Adequate intravenous sedation was achieved with anesthesia titration of propofol. Variable stiffness Olympus colonoscope was inserted via the anus. Was advanced to the cecum. Colonic preparation was good. Ileocecal valve and appendiceal orifice were identified. Colonoscope was slowly withdrawn through the colon with careful surveillance. There was an adenomatous appearing 8 mm polyp in the ascending colon just proximal to the hepatic flexure. This was removed in a piecemeal fashion using cold snare. Colonoscope was withdrawn through the remainder of the colon with careful surveillance. He did have some beginnings of diverticuli in the sigmoid colon. Retroflexion within the rectum revealed no evidence of any pathologic internal hemorrhoids. Colonoscope was withdrawn. Findings:: Approximately 8 mm ascending colon polyp Recommendations:: Likely repeat colonoscopy 5 years Complications:: None immediately apparent Estimated blood obtained (mL): 2
[2021-08-12 10:18] VITALS: BP 130/62; PULSE 78; RESP 18; TEMP 37.2; O2SAT 97
[2021-08-12 10:35] VITALS: BP 140/75; PULSE 84; RESP 18; TEMP 37.2; O2SAT 95
[2021-08-12 10:55] VITALS: BP 153/86; PULSE 80; RESP 16; TEMP 37.2; O2SAT 99
--- NOTE | 2021-08-12 11:54 | P.PN_ITS ---
[facility] Anesthesia Checklist - Patient Identification Patient Identification: Arm Band, Verbal (Name & ) - Structural Data Admitted From: Home Planned Operative Procedure/s: Colonoscopy Consent for Planned Operative Procedure(s) Verified: Yes Verified Documents: Surgical Consent - NPO Status Verified Time NPO: 05:00 - Cardiovascular Assessment Heart Sounds: S1 & S2 - Airway Assessment C-Spine Mobility Assessed: Yes TMJ Mobility Assessed: Yes Dentition: Good Dentition - Neurological Assessment Level of Consciousness: Awake, Alert, Appropriate - Anesthesia Plan Anesthesia Risk discussed: Yes ASA Class: III Anesthesia Type: General [facility] History I have reviewed the patient's past medical history: Yes Medical History: Reports:: Hypertension Denies:: Cancer, Diabetes Mellitus Type 1, Diabetes Mellitus Type 2, Internal Pacemaker, MRSA, Seizures *Have you ever received a pneumonia vaccine?: No *Have you received a flu vaccine this season?: No Anesthesia experience/problems:: none Other Surgeries: Yes: No Previous Surgery. No: Pacemaker Amputation: No Fractures: No - *Social History Last grade of school completed: High school graduate Smoking Status: Never smoker Alcohol Intake: current Alcohol Intake Frequency:: holidays/special occasions only Substance Use Type: denies use *Occupational Status:: employed Housing: house Household Members: spouse *Travel in the last 8 weeks: None Family Hx:: Cancer, Coronary Artery Disease
== END 2021-08-12 11:05 | disposition home or self-care (01) ==
LOC: OUTP 09:13
PROVIDERS: PCP Internal Medicine Adolescent Medicine; Visit Provider Surgery
PROC: 0DJD8ZZ Inspection of Lower Intestinal Tract, Via Natural or Artificial Opening Endoscopic (ICD-10-PCS; CPT 45385; principal; 2021-08-12 10:30)
DX: Z12.11 Encounter for screening for malignant neoplasm of colon (principal); I10 Essential (primary) hypertension; K63.5 Polyp of colon; Z80.9 Family history of malignant neoplasm, unspecified; Z82.49 Family history of ischemic heart disease and other diseases of the circulatory system; Z88.0 Allergy status to penicillin; Z79.82 Long term (current) use of aspirin; Z79.899 Other long term (current) drug therapy
CPT/HCPCS: 45385

== ENCOUNTER → 2021-08-20 17:19 | Outpatient (CLI) | payer OTHER, SELFPAY | PROVIDERS: PCP Internal Medicine Adolescent Medicine; Visit Provider Nurse Practitioner | DX: U07.1 COVID-19 (principal) | CPT/HCPCS: C9803; U0003; U0005 ==

== ENCOUNTER 2023-03-09 15:00 | Outpatient (RCR) | payer OTHER, SELFPAY ==
--- NOTE | 2023-02-11 15:05 | HMH.PTOPEV ---
PT Outpatient Evaluation Rehab PT Outpatient Evaluation Start: 02/11/23 14:00 Freq: Status: Active Protocol: Document 02/11/23 14:35 PHOKRISTI (Rec: 02/11/23 15:05 PHORKURTIS [id number]) E-signed By Russ Mendiola, PT Outpatient Therapy Subjective History Subjective History This is the initial PT eval for Macho Lynne, 57 yowm who presents with c/o pain in the medial L knee x 1-2 wks with insidious onset of symptoms. He reports pain is worse with walking up/down stairs and any twisting in wb'ing. He reports MD prescribed topical medication that has helped reduce some of his pain. 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 Chief Complaint Pain Symptom Type Sharp,Dull Symptoms Relieved By Rest/Positioning Symptoms Aggravated By Twisting Prior Functional Limitations None Current Functional Limitations Stairs Symptom Description Constant but Variable Level of pain today (0-10) 2 Pain scale - at its worst (0-10) 8 Hip/Knee Eval Palpation Tenderness left Knee Palpation Finding Tenderness Knee Palpation Overall Comment medial- pes anserine area, 2/4 MMT Hip Flexion Strength Grade 5 Normal Hip Abduction Strength Grade 5 Normal Hip Adduction Strength Grade 5 Normal Hip Extension Strength Grade 5 Normal Hip External Rotation Strength Grade 4 Good Hip Internal Rotation Strength Grade 5 Normal Knee Extension Strength Grade 5 Normal Knee Flexion Strength Grade 5 Normal ROM Knee Extension Active Range of Motion ( 0 degrees) Knee Flexion Active Range of Motion ( 0-112 degrees) Special Tests Knee Anterior Drawer Test Negative Left,Negative Right Duenas 90/90 Test (PCL) Negative Left,Negative Right Knee Anterior Reyes Test Negative Left,Negative Right Knee Valgus Stress Test Negative Left,Negative Right Knee Varus Stress Test Negative Left,Negative Right Patella Apprehension Test Negative Right,Positive Left Outpatient Therapy Assessment Impairments Problems/Impairmments Palpation Tenderness,Impaired Range of Motion,Impaired Strength,Impaired Endurance, Impaired Stair Climbing, Impaired Recreational
== END 2023-03-09 15:05 | disposition home or self-care (01) ==
LOC: PT 15:00
PROVIDERS: PCP Internal Medicine Adolescent Medicine; Visit Provider Internal Medicine Adolescent Medicine
DX: M25.562 Pain in left knee (principal)
CPT/HCPCS: 97010; 97014; 97016; 97035; 97110; 97112; 97140; 97163; 97535; G0283

== ENCOUNTER 2024-03-27 14:00 | Outpatient (RCR) | payer OTHER, SELFPAY ==
--- NOTE | 2024-02-28 16:00 | HMH.PTOPEV ---
PT Outpatient Evaluation Rehab PT Outpatient Evaluation Start: 02/28/24 14:57 Freq: Status: Active Protocol: Document 02/28/24 14:57 PDESEROUX (Rec: 02/28/24 15:59 [email or web address] Desktop) E-signed By Luciano Cortez, PT Outpatient Therapy Subjective History Subjective History Pt. is a 58 year old male who presents to [facility] Outpatient Physical Therapy Services in [place] for the initial evaluation this date( 02/28/24) w/ c/o subacute and constant L-sided cervical and shldr. P!, stiffness, and spasms of insidious onset 5 weeks ago w/ acute and intermittent L-sided cervical and shldr. numbness/tingling of insidious onset 1 week ago. Pt. denies numbness/tingling into the hand nor digits at this time. Pt. denies having any problems w/ gripping objects. However, pt. 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 Pt. also vocalizes having difficulty looking up secondary to symptomatic P!. Pt. reports having some symptom relief w/ MHP and prescribed muscle relaxer. Pt. denies having any recent diagnostic imaging nor injections for current symptom complaint. Current medication list includes Omeprazole, Atorvastatin, Celecoxib, and Aspirin. PMH includes S/P lumbar surgery, LLE knee degenerative changes, HTN, HLD, hx. covid-19. New diagnosis of cancer in past 12 No months? Chief Complaint Pain,Spasms,Stiff,Clicks, Paresthesia Symptom Type Ache,Throb,Burning,Numbness, Tingling,Shooting Symptoms Relieved By Rest/Positioning,Heat, Prescription Meds Symptoms Aggravated By Physical Activity,Twisting Prior Functional Limitations None Current Functional Limitations Desk Work/Reading,Driving, Sleeping,Recreation Activity Symptom Description Constant but Variable,Activity Dependent Level of pain today (0-10) 3 Pain scale - at its best (0-10) 1 Cervical Eval Palpation Cervical Muscles L CT Junction,L Upper Trapezius Cervical/Thoracic Palpation Findings Tenderness,Spasm,Trigger Point Posture Head/C-Spine Posture Sitting Position Neutral Position Head/C-Spine Posture Standing Position Neutral Position Flexibility Deficits Upper Trapezius Muscle Length (L) Severe Tightness Levaetor Scapulae Muscle Length (L) Severe Tightness Scalene Group Muscle Length (L) Severe Tightness Sternocleidomastoid Muscle Length (L) Severe Tightness Pectoralis Major Muscle Length (L) Severe Tightness Pectoralis Minor Muscle Length (L) Severe Tightness Passive Joint Mobility Cervical PIVM Dec: R C4/5 L C4/5 R C5/6 L C5/6 R C6/7 L C6/7 WNL: R OA L OA R AA L AA R C2/3 L C2/3 R C3/4 L C3/4 R C7/T1 L C7/T1 AROM Cervical Spine Extension Active Range of 23 Motion (degrees) Cervical Spine Flexion Active Range of 46 Motion (degrees) Cervical Spine Right Lateral Flexion 24 Active Range of Motion (degrees) Cervical Spine Left Lateral Flexion 17 Active Range of Motion (degrees) Cervical Spine Right Rotation Active 57 Range of Motion (degrees) Cervical Spine Left Rotation Active 43 Range of Motion (degrees) MMT Left Deltoid (C5) 4- Good- Biceps Brachii Strength Grade 5 Normal Wrist Extension Strength Grade 5 Normal Triceps Brachii Strength Grade 5 Normal Wrist Flexion Strength Grade 5 Normal Extensor Pollicis Longus Strength Grade 5 Normal Finger Abduction Strength Grade 5 Normal Altered Sensation Bilateral Comment light touch sensation vocalized symmetrical in BUEs Special Test C-Spine Foraminal Compression (Spurling) Positive Left Test C-spine Verterbral Accessory Movements Central P/A Adrian,Left P/A that Elicit Symptoms Adrian C-Spine Foraminal Distraction Test Positive C-Spine Compression Test Positive Left Outpatient Therapy Assessment Impairments Problems/Impairmments Palpation Tenderness,Impaired Range of Motion,Impaired Strength,Impaired Driving, Impaired Recreational Activities,Impaired Work Activities,Impaired Desk/ Computer Activities,Subjective C/O Pain,Impaired Self Care/ Self Management Prognosis Rehab Potential Good Comment w/ HEP compliancy Clinical Impression Consistent with Diagnosis Yes Consistent with cervical radiculopathy, L Short Term Goals Number of Weeks 2 Decreased Palpation Tenderness Yes: grade 1-2 +TTP to TTP assessment above Decrease Subjective C/O Pain Yes: worse:12/29 Patient to be Ind w/ HEP Yes [facility] Goals Number of Weeks 4-6 Decreased Palpation Tenderness Yes: grade 1 +TTP to TTP assessment above Increase Range of Motion Yes: cervical spine ROM WFL grossly Increase Strength Yes: ELIZABETH dunham MMT scores 4+ to 5/5 grossly w/o difficulty Increase Ability to Drive/Ride in Car Yes Improve Tolerance to Work Activities Yes: 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 Improve Neck Disability Index Score Yes Decrease Subjective C/O Pain Yes: worse:-10/01 Patient to be Ind w/ Advanced HEP Yes Outpatient Therapy Plan of Care Treatment Plan May Include Therapeutic Exercise Including Home Yes Exercise Program Manual Therapy Techniques Yes Neuromuscular Re-education Yes Therapeutic Activities to Return to Yes Previous Functional/Work Level ADL/Self Care Education Yes Mechanical Traction Yes Dry Needling Yes Thermal Modalities Yes Electrical Stimulation Yes Ultrasound/Phonophoresis Yes Iontophoresis Yes Vasopneumatic Compression Pump Yes Massage Yes Eval/Re-Eval Yes Frequency Times per week 2 Duration Number of Weeks 4-6 Addendums This patient is a candidate for social No or vocational rehab? Patient/Guardian verbally acknowledges Yes understanding of treatment program and consents to further treatment? Patient/Guardian verbally acknowledges Yes understanding of diagnosis, prognosis and goals for treatment? Eval Complexity PT Charges 92058 - Low Complexity Shoulder/Elbow Eval Shoulder Objective Measurements Elbow Objective Measurements PHYSICIAN CERTIFICATION: I certify the specified therapy services for Macho Chain are required, authorized, and reviewed every 30 days.
== END 2024-03-29 13:50 | disposition home or self-care (01) ==
LOC: PT 14:00
PROVIDERS: Visit Provider Physician Assistant
DX: M25.512 Pain in left shoulder (principal); T14.8XXA Other injury of unspecified body region, initial encounter
CPT/HCPCS: 20560; 97010; 97012; 97014; 97110; 97140; 97163; G0283

== ENCOUNTER 2024-04-30 15:00 | Outpatient (RCR) | payer OTHER, SELFPAY ==
--- NOTE | 2024-04-10 11:43 | HMH.PTOPEV ---
PT Outpatient Evaluation Rehab PT Outpatient Evaluation Start: 04/10/24 09:57 Freq: Status: Active Protocol: Document 04/10/24 09:57 PDESEROUX (Rec: 04/10/24 11:42 [email or web address] Desktop) E-signed By Luciano Cortez, PT Outpatient Therapy Subjective History Subjective History Pt. is a 58 year old male who presents to [facility] Outpatient Physical Therapy Services in [place] for the initial evaluation this date( 04/10/24) w/ c/o acute and constant RUE shldr. P!, stiffness, and weakness of insidious onset a few months ago that progressively has been getting worse in that last couple weeks. Pt. denies trauma as [place]. Pt. reports symptoms initially originated in the RUE shldr. and has progressively worsened into the biceps brachii mm. Pt. vocalizes having a history of a similar symptom complaint in the RUE shldr. that previous Physical Therapy provided some symptom relief. Pt. reports having the most relief w/ intra-muscular manual therapy w/ previous treatment. Pt. reports having difficulty or unable to perform activities behind his back secondary to P! including wiping after using the bathroom, tucking shirttail in , and donning/doffing belt. Pt . reports also have difficulty reaching behind him in the truck to grab an object out of the back seat. Pt. also c/o P ! w/ lifting objects in awkward positions at home. Pt . denies having recent diagnostic imaging for current complaint, denies having a steroid injection for current complaint. Pt. denies having any numbness nor tingling. Pt. reports having a little symptom relief w/ prescribed Prednisone pack. Current medication list includes Prednisone, Omeprazole, Atorvastatin, Celecoxib, and Aspirin. PMH includes S/P lumbar surgery, LLE knee degenerative changes, HTN, HLD , hx. covid-19. New diagnosis of cancer in past 12 No months? Chief Complaint Pain,Spasms,Stiff,Clicks,Gives out/Unstable,Weakness Symptom Type Ache,Sharp,Dull,Stabbing, Burning,Shooting Symptoms Relieved By Rest/Positioning,Ice,OTC Meds, Prescription Meds Symptoms Aggravated By Physical Activity,Twisting, Lifting Prior Functional Limitations None Current Functional Limitations Reaching,Lifting,Dressing, Driving,Sleeping,Recreation Activity Symptom Description Constant but Variable,Activity Dependent Level of pain today (0-10) 2 Pain scale - at its best (0-10) 1 Pain scale - at its worst (0-10) 6 Shoulder/Elbow Eval Shoulder Objective Measurements Palpation Tenderness tenderness shoulder exam standard right tenderness over the bicipital tendon right shoulder exam standard tenderness over the SA bursa shoulder right exam standard Shoulder Palpation Findings Tenderness Shoulder Palpation Overall Comment grade 4 +TTP to TTP assessment above Posture Shoulder Posture Sitting Position (R) Rounded,(R) Forward Shoulder Posture Standing Position (R) Rounded,(R) Forward Scapula Posture Sitting Position (R) Protracted Scapular Posture Standing Position (R) Protracted Flexibilty Deficits Pectoralis Minor Muscle Length (R) Severe Tightness Pectoralis Major Muscle Length (R) Severe Tightness Shoulder External Rotators Muscle Length (R) Severe Tightness Shoulder Internal Rotators Muscle Length (R) Severe Tightness Upper Trapezius Muscle Length (R) Severe Tightness Levaetor Scapulae Muscle Length (R) Severe Tightness Shoulder ROM Right Shoulder ROM Limitations Soft Tissue Tightness,Muscle Weakness,Pain Shoulder Abduction Active Range of 118 Motion (degrees) Shoulder Abduction Passive Range of 129 Motion (degrees) Shoulder Flexion Active Range of Motion 112 (degrees) Query Text: Shoulder Flexion Passive Range of Motion 123 (degrees) Shoulder External Rotation Active Range 62 of Motion (degrees) Shoulder External Rotation Passive Range 65 of Motion (degrees) Shoulder Internal Rotation Active Range 68 of Motion (degrees) Shoulder Internal Rotation Passive Range 71 of Motion (degrees) Shoulder Extension Active Range of 55 Motion (degrees) Shoulder Extension Passive Range of 59 Motion (degrees) pain with active ROM shoulder exam right standard pain with passive ROM shoulder exam right standard decreased ROM shoulder exam standard right Shoulder MMT Anterior Deltoid Strength Grade 3+ Fair+ Upper Trapezius/Levator Scapulae 5 Normal Shoulder Abduction Strength Grade 3+ Fair+ Shoulder Extension Strength Grade 4- Good- Shoulder Flexion Strength Grade 3+ Fair+ Infraspinatus/Teres Minor Strength Grade 3+ Fair+ Shoulder External Rotation Strength 3+ Fair+ Grade Shoulder Internal Rotation Strength 3+ Fair+ Grade Shoulder Strength Patient Testing Sitting Position Shoulder Muscle Tone Shoulder Flexor Muscle Tone Description Severe Hypotonicity Shoulder Extensors Muscle Tone Severe Hypotonicity Description Shoulder Lateral Rotator Muscle Tone Severe Hypotonicity Description Shoulder Special Tests impingement sign present shoulder exam right standard Shoulder Drop Arm Test Positive Right Shoulder Cross-Over Impingement Test Negative Right Shoulder Empty Can (Supraspinatus) Test Positive Right Shoulder Lockhart-Remington Impingement Positive Right Test Shoulder Speed's Sign Test Positive Right Elbow Objective Measurements Flexibility Deficits Bicep Muscle Length (R) Severe Tightness Tricep Muscle Length (R) Severe Tightness Elbow MMT Right Elbow Flexion Strength Grade 3+ Fair+ Biceps Brachii Strength Grade 3+ Fair+ Brachioradialis Strength Grade 4- Good- Brachialis Strength Grade 4- Good- Brachialis Strength Grade (Flexion) 4- Good- Elbow Extension Strength Grade 4- Good- Triceps Brachii Strength Grade 4- Good- Elbow Muscle Tone Elbow Extensors Muscle Tone Description Severe Hypertonicity Elbow Flexors Muscle Tone Description Severe Hypertonicity Accessory Movements Right Shoulder Girdle Accessory Movements that Glenohumeral [place], Elicit Symptoms Glenohumeral [place] Outpatient Therapy Assessment Impairments Problems/Impairmments Palpation Tenderness,Impaired Range of Motion,Impaired Strength,Impaired Driving, Impaired Lifting,Impaired Dressing,Impaired Household Care,Impaired Recreational Activities,Subjective C/O Pain ,Impaired Self Care/Self Management Prognosis Rehab Potential Good Comment w/ HEP compliancy Clinical Impression Consistent with Diagnosis Yes Consistent with acute RUE shldr. P! Short Term Goals Number of Weeks 2 Decreased Palpation Tenderness Yes: grade 1-2 +TTP to TTP assessment above Decrease Subjective C/O Pain Yes: worse:12/29 Patient to be Ind w/ HEP Yes Hand Tube Winder Goals Number of Weeks 4-6 Decreased Palpation Tenderness Yes: grade 1 +TTP to TTP assessment above Increase Range of Motion Yes: RUE shldr. A/PROM WFL grossly w/o difficulty Increase Strength Yes: 4+ t0 5/5 RUE shldr. MMT scores grossly w/o difficulty Increase Ability to Drive/Ride in Car Yes: Pt. will be able to reach in back seat w/o difficulty. Restore Ability to Lift Objects to Yes: Pt. will be able to lift Shoulder Level a coffee pot w/o difficulty. Improve Ability to Dress Self Yes: Pt. will be able to don/ doff belt w/o difficulty Improve Quick Dash Score Yes Decrease Subjective C/O Pain Yes: worse:-10/01 Improve Self Care/Self Management Yes: Pt. will be able to wipe using RUE after the bathroom w /o difficulty. Patient to be Ind w/ Advanced HEP Yes Outpatient Therapy Plan of Care Treatment Plan May Include Therapeutic Exercise Including Home Yes Exercise Program Manual Therapy Techniques Yes Neuromuscular Re-education Yes Therapeutic Activities to Return to Yes Previous Functional/Work Level ADL/Self Care Education Yes Dry Needling Yes Thermal Modalities Yes Electrical Stimulation Yes Ultrasound/Phonophoresis Yes Iontophoresis Yes Vasopneumatic Compression Pump Yes Massage Yes Eval/Re-Eval Yes Frequency Times per week 2 Duration Number of Weeks 4-6 Addendums This patient is a candidate for social No or vocational rehab? Patient/Guardian verbally acknowledges Yes understanding of treatment program and consents to further treatment? Patient/Guardian verbally acknowledges Yes understanding of diagnosis, prognosis and goals for treatment? Eval Complexity PT Charges 52546 - Moderate Complexity PHYSICIAN CERTIFICATION: I certify the specified therapy services for Macho Lynne are required, authorized, and reviewed every 30 days.
== END 2024-06-12 16:09 | disposition home or self-care (01) ==
LOC: PT 15:00
PROVIDERS: Visit Provider Nurse Practitioner Family
DX: M25.511 Pain in right shoulder (principal)
CPT/HCPCS: 20560; 97014; 97035; 97110; 97163; G0283

== ENCOUNTER 2024-06-19 15:00 | Outpatient (RCR) | payer OTHER, SELFPAY | END 2024-08-08 14:05 | disposition home or self-care (01) | LOC: PT 15:00 | PROVIDERS: Visit Provider Physician Assistant | DX: M25.511 Pain in right shoulder (principal); M79.621 Pain in right upper arm; S46.011A Strain of muscle(s) and tendon(s) of the rotator cuff of right shoulder, initial encounter; S46.221A Laceration of muscle, fascia and tendon of other parts of biceps, right arm, initial encounter | CPT/HCPCS: 97014; 97110; 97163; G0283 ==

== ENCOUNTER 2024-07-18 10:29 | Outpatient (CLI) | payer OTHER, SELFPAY ==
[2024-07-18 11:23] LABS: Basophils # 0.2 K/mm3 (0-0.2); Basophils % 1.3 % (0.1-2.0); Eosinophils # 0.4 K/mm3 (0.0-0.4); Eosinophils % 3.3 % (0.1-12.0); Hematocrit 46.1 % (42.0-52.0); Lymphocytes # 2.4 K/mm3 (0.7-4.5); Lymphocytes % 21.2 % (10-50); Mean Corpuscular HGB Conc 32.6 g/dL (31.8-35.4); Mean Corpuscular Hemoglobin 28.2 pg (27.0-31.2); Mean Corpuscular Volume 86.6 fl (80-94); Monocytes # 0.5 K/mm3 (0.1-1.0); Monocytes % 4.8 % (1.7-9.3); Neutrophils # 7.8 K/mm3 (1.8-7.8); Neutrophils % 69.4 % (37.0-80.0); Platelet Count 288 K/mm3 (142-424); Red Blood Count 5.32 M/mm3 (4.60-6.20); Red Cell Distribution Width 14.6 % (11.5-17.5); White Blood Count 11.2 K/mm3 (4.8-10.8)
[2024-07-18 12:06] LABS: Hemoglobin A1C 7.8 % (4.0-6.0)
[2024-07-18 12:12] LABS: Albumin Level 3.8 g/dl (3.5-5.0); Chloride 100 mmol/L (98-107); Potassium 4.5 mmoL/L (3.5-5.1); Sodium 140 mmol/L (136-145)
[2024-07-18 12:14] LABS: Alanine Aminotransferase 30 U/L (12-78); Anion Gap 8.5 mEq/L (5-15); Aspartate Amino Transferase 34 U/L (17-59); Blood Urea Nitrogen 20 mg/dl (9-20); Carbon Dioxide 36 mmol/L (22.0-30.0); Estimated Glomerular Filt Rate 77 ml/min (>60); GFR (African American) 94 ML/MIN (>60)
[2024-07-18 12:15] LABS: Albumin/Globulin Ratio 1.4 (1.1-1.8); Alkaline Phosphatase 131 U/L (38-126); Bilirubin,Total 0.5 mg/dl (0.2-1.3); Cholesterol 176 mg/dl (140-200); Globulin 2.7 g/dL (1.3-3.2); Glucose 136 mg/dl (74-100); HDL Cholesterol 35 mg/dl (40-60); Total Protein,Serum 6.5 g/dl (6.3-8.2); Triglycerides 179 mg/dl (30-150); VLDL Cholesterol 36 mg/dL (0-40)
[2024-07-18 12:26] LABS: Direct LDL Cholesterol 108.11 mg/dL (100-129)
[2024-07-18 12:34] LABS: Free Thyroxine Index 3.7 ug/dL (5.93-13.13); T4 (Thyroxine) 12.2 ug/dl (5.53-11.0); Triiodothryronine (T3) Uptake 30 % (23.5-40.5)
[2024-07-18 12:48] LABS: Thyroid Stimulating Hormone 1.65 uIU/mL (0.465-4.68)
== END 2024-07-18 23:59 | disposition home or self-care (01) ==
LOC: LAB 10:30
PROVIDERS: PCP Internal Medicine Adolescent Medicine; Visit Provider Internal Medicine Adolescent Medicine
DX: E66.01 Morbid (severe) obesity due to excess calories (principal); E11.69 Type 2 diabetes mellitus with other specified complication
CPT/HCPCS: 36415; 80050; 80053; 80061; 83036; 84436; 84443; 84479; 85025

== ENCOUNTER 2024-09-02 13:18 | Emergency (ER) | payer OTHER, SELFPAY ==
[2024-09-02 13:48] VITALS: BP 157/90; PULSE 76; RESP 18; TEMP 36.6; O2SAT 95; BMI 51.2
--- NOTE | 2024-09-02 13:49 | ED_ITS ---
Discharge Plan Disposition Patient Disposition: Home, Self-Care Condition: Good Prescriptions Prescriptions: New cephalexin 500 mg capsule 500 mg PO QID 10 Days Qty: 40 0RF No Action atorvastatin 20 MG tablet 20 mg PO HS aspirin 325 MG tablet 325 mg PO DAILY omeprazole 40 MG capsule,delayed release(DR/EC) 40 mg PO DAILY valsartan-hydrochlorothiazide 1 EACH tablet 1 each PO DAILY Rx Instructions: 25/160mg Referrals Follow up/Referrals: Michael Gaston MD [Primary Care Provider] - See instructions Activity Restrictions/Add. Instructions Additional Instructions/Restrictions: Keep the wound clean and dry. Keep a dressing on it if you are going to be getting it dirty. Rest the extremity & Elevate the extremity as tolerated while you are resting as much time as tolerated for the next few days. Watch the wound for signs of infection, such as redness, swelling, drainage, fever. etc. Take tylenol for pain. Follow up with your regular doctor. Return in 10 days to have the sutures removed. GO TO THE ER FOR ANY WORSENING SYMPTOMS OR CONCERNS. Make sure you follow up with your primary care physician. Since you are diabetic, there may be issues with the wound healing well. Follow up with your physician to watch for this. 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 When it did this, it caught on the sharp point of the corner of his door. This caused him to get a laceration on his rig ht lower leg. His tdap is not up to date. He is a diabetic. Related Data Home Medications ?Medication ?Instructions ?Recorded ?Confirmed aspirin 325 mg tablet 325 mg PO DAILY heart health 04/01/21 09/02/24 omeprazole 40 mg capsule,delayed 40 mg PO DAILY acid reflux 04/01/21 09/02/24 release valsartan 160 1 each PO DAILY Hypertension 04/01/21 09/02/24 mg-hydrochlorothiazide 25 mg tablet atorvastatin 20 mg tablet 20 mg PO HS Cholesterol 08/10/21 09/02/24 Previous Rx's ?Medication ?Instructions ?Recorded cephalexin 500 mg capsule 500 mg PO QID 10 days #40 caps 09/02/24 Allergies Allergy/AdvReac Type Severity Reaction Status Date / Time Penicillins (PENICILLINS) Allergy Severe SWELLING Verified 08/24/24 13:23 [facility] Disclaimer: The information contained in this section may have been updated after the patient was seen, as this information can be updated by other users. Surgical History (Updated 08/24/24 @ 13:23 by BEATRICE Kohler) History of colonoscopy Social History Smoking Status: Never smoker second hand exposure: No alcohol intake: current alcohol intake frequency: holidays/special occasions only substance use type: denies use current occupational status: employed Travel in the last 8 weeks: None household members: spouse housing: house current occupation: [employer] current occupational exposures/hazards: No caffeine: Yes Have you lived/traveled outside US in past 30 days?: No Contact w/someone who lives/traveled outside US past 30 days?: No Exposure to someone with infectious disease in past 14 days?: No Do you have a fever (greater than 100.4 F or 38 C)?: No Have you tested positive for COVID-19: No Exposed to someone with COVID-19 in past 14 days?: No Do you have a sore throat?: No Do you have a cough?: No Do you have any weakness?: No Do you have any diarrhea?: No Are you experiencing any unusual bleeding?: No Do you have any muscle aches/pain?: No Do you have any abdominal pain?: No Are you experiencing loss of taste or smell?: No ROS Obtained: Yes All systems reviewed & no additional complaints except as documented Constitutional Constitutional: Denies chills and Denies fever(s) Eyes Eyes: Denies eye discharge ENT Ears, Nose, Mouth, and Throat: Denies dizziness, Denies otalgia and Denies sore throat Cardiovascular Cardiovascular: Denies chest pain Respiratory Respiratory: Denies shortness of breath, Denies chest congestion, Denies cough, Denies stridor and Denies wheezing Gastrointestinal Gastrointestingal: Denies nausea or vomiting Musculoskeletal Musculoskeletal: Reports system reviewed and no additional complaints, except as documented and Denies arthralgias Integumentary/Breasts Skin/Breast: Reports as per HPI and Reports wounds Neurologic Neurologic: Denies dizziness and Denies paresthesias Allergic/Immunologic Allergic/Immunologic: Denies wheezing Physical Exam General General appearance: alert and in no apparent distress Head Head exam: atraumatic, normocephalic and normal inspection Eye Eye exam: Present normal appearance, PERRL and EOMI ENT ENT exam: Present normal exam, normal oropharynx, mucous membranes moist, TM's normal bilaterally and normal external ear exam Neck Neck exam: Present normal inspection, full ROM and trachea midline; Absent meningismus or lymphadenopathy Chest Chest inspection: Present normal inspection and symmetric chest wall rise; Absent tenderness Respiratory Respiratory exam: Present normal lung sounds bilaterally; Absent respiratory distress Cardiovascular Cardiovascular exam: Present regular rate and normal rhythm; Absent JVD Abdominal Exam Abdominal exam: Present soft and normal bowel sounds; Absent distention, tenderness or guarding Extremities Exam Extremities exam: Present normal inspection, full ROM and normal capillary refill; Absent calf tenderness Back Exam Back exam: Present normal inspection; Absent tenderness Neurological Exam Neurological exam: Present alert and oriented X3 Psychiatric Psychiatric exam: Present normal affect and normal mood Skin Skin exam: Present other (on the lateral aspect of his right lower leg there is a 8 cm linear laceration, no deep tissue or tendon damage noted. no foreign body noted, he has good 2 point touch discrimination distal to the wound. ) Lymphatic Lymphatic Findings: no adenopathy Medical Decision Making Medical Records Medical records reviewed: No I reviewed the patient's medical records. Screening: Per USPSTF and CDC recommendations, given the prevalence of disease in our region, it is our hospital?s policy to screen for HIV and viral Hepatitis for all patients aged 18 and over and those with ongoing risk factors. Calvin Inquiry Pt receiving controlled substance: No Procedures Risk/Benefits of Procedure(s) Were Explained: Yes Laceration Laceration 1: Site: lower extremity Side (If applicable): right Size (cm): 8 Description: linear Depth: simple, single layer Local Anesthetic: lidocaine 1% Amount of anesthesia used (mL): 3 Pre-repair: wound explored, irrigated extensively and deep structures intact Skin layer closed with: nylon Size (cm): 5-0 Number of sutures: 15 Technique: simple, interrupted (He tolerated this well, good closure was obtained, the edges were approximated well. )
[2024-09-02] MEDS: TET/DIPHTH/PERT-ADULT 0.5ML SYRINGE 0.5 ML IM (15:09)
[2024-09-02 15:26] VITALS: BP 157/90; PULSE 76; RESP 18; TEMP 36.6
== END 2024-09-02 15:27 | disposition home or self-care (01) ==
PROVIDERS: Emergency Provider Nurse Practitioner Family; PCP Internal Medicine Adolescent Medicine
DX: S81.811A Laceration without foreign body, right lower leg, initial encounter (principal); E11.9 Type 2 diabetes mellitus without complications; Z23 Encounter for immunization
CPT/HCPCS: 90471; 90715; 99213; G0381

== ENCOUNTER 2024-09-06 06:24 | Day surgery (SDC) | payer OTHER, SELFPAY ==
[2024-09-03 17:19] VITALS: BMI 51.2
[2024-09-06 06:49] VITALS: BP 171/78; PULSE 74; RESP 18; TEMP 36.1; O2SAT 92
[2024-09-06] MEDS: LIDOCAINE 1% 20ML MDV 20 ML (07:13)
[2024-09-06 07:42] VITALS: BP 147/78; PULSE 73; RESP 18; TEMP 36.6; O2SAT 94
--- NOTE | 2024-09-06 07:46 | EXP.OP.NOTE ---
Date of procedure: 09/06/24 Pre-op Diagnosis:: Left upper extremity skin lesions (10 mm, 6 mm, and 4 mm) Post-op Diagnosis:: Same Procedure performed:: Excision of left upper extremity skin lesions (10 mm, 6 mm, and 4 mm) Surgeon:: Catracho Giang MD Anesthesia: local Estimated blood loss (mL): 5 Operative findings:: Lesions excised in toto Operative note:: After informed consent was obtained the patient was taken to the procedure room. His left forearm was prepped and draped in a sterile fashion. After infiltration with local anesthetic elliptical incisions were made around the 3 separate (adjacent) lesions. The distal 10 mm lesion was excised in toto sharply and passed off for pathologic evaluation. The 4 mm medial lesion was excised in a similar manner and passed off for pathologic evaluation. The 6 mm proximal lesion was excised in a similar manner and passed off for pathologic evaluation. Thermal cautery was utilized to achieve hemostasis at all 3 sites. Skin was then reapproximated with interrupted 4-0 nylon. Dressings were applied and the patient was discharged home in good condition. Condition: stable Disposition: no change Specimens:: Left forearm skin lesion (distal) Left forearm skin lesion (medial) Left forearm skin lesion (proximal) Complications:: No immediate
[2024-09-06 16:44] LABS: POC Glucose,Bedside 187 (70-110)
== END 2024-09-06 07:49 | disposition home or self-care (01) ==
PROVIDERS: PCP Internal Medicine Adolescent Medicine; Visit Provider Surgery
PROC: (CPT 11402; principal; 2024-09-06 07:30)
DX: L57.0 Actinic keratosis (principal); D04.62 Carcinoma in situ of skin of left upper limb, including shoulder
CPT/HCPCS: 11402; 11403; 11602; 82962

== ENCOUNTER 2024-11-28 18:50 | Emergency (ER) | payer OTHER, SELFPAY ==
[2024-11-28 18:57] VITALS: BP 190/109; PULSE 79; RESP 16; TEMP 37.2; O2SAT 95; BMI 50.8
--- NOTE | 2024-11-28 18:58 | PC.NURSE ---
4x4 and kerlex placed at this time over left lower extremity
[2024-11-28 19:00] VITALS: BP 160/76; PULSE 69; RESP 16; O2SAT 95
[2024-11-28 19:30] VITALS: BP 172/90; PULSE 66; O2SAT 96
--- NOTE | 2024-11-28 19:31 | ED_ITS ---
Discharge Plan Disposition Patient Disposition: Home, Self-Care Condition: Good Prescriptions Prescriptions: New cephalexin 500 mg tablet 500 mg PO BID 7 Days Qty: 14 0RF No Action atorvastatin 20 MG tablet 20 mg PO HS aspirin 325 MG tablet 325 mg PO DAILY omeprazole 40 MG capsule,delayed release(DR/EC) 40 mg PO DAILY valsartan-hydrochlorothiazide 1 EACH tablet 1 each PO DAILY Rx Instructions: 25/160mg cephalexin 500 mg capsule 500 mg PO QID 10 Days Qty: 40 0RF Referrals Follow up/Referrals: Michael Gaston MD [Primary Care Provider] - See instructions Activity Restrictions/Add. Instructions Additional Instructions/Restrictions: Keep wound clean and dry Monitor for infection Antibiotics as ordered Return in 02-28 for suture removal Clinical Impressions Clinical Impression: Laceration of left lower extremity Qualifiers: Encounter type: initial encounter Qualified Code(s): S81.812A - Laceration without foreign body, left lower leg, initial encounter Instructions Patient Instructions: How to Care for a Laceration After Repair, DI for Laceration Repair, DI for Laceration Repair -- Simple Print Language Print Language: Citizen Of [place] Discharge ED Provider: Brock Escobedo General Adult HPI <Lynn Rodríguez ([facility] [place]), CRITICAL POWER INSTALL TECHNICIAN - Last Filed: 11/28/24 20:17> General Chief complaint: Extremity Injury, Lower Stated complaint: AO 4-9 drop tree on left leg Time Seen by Provider: 11/28/24 19:05 Mode of Arrival: Ambulatory Source of Information: Patient Description of Symptoms (Recalled from ER Triage Doc. by RN): Patient states he dropped a tree on his left leg; states he has lymphedema so his skin is cut easily; On 325 of aspirin; had a tetanus shot a couple of months ago. History of Present Illness HPI narrative: 59-year-old male presents for a laceration to the left lower leg. Patient states he was picking up brush and tree limbs out of his yard when a small tree hit against the leg causing a laceration. Patient does not want x-ray Related Data Home Medications ?Medication ?Instructions ?Recorded ?Confirmed aspirin 325 mg tablet 325 mg PO DAILY heart health 04/01/21 09/26/24 omeprazole 40 mg capsule,delayed 40 mg PO DAILY acid reflux 04/01/21 09/26/24 release valsartan 160 1 each PO DAILY Hypertension 04/01/21 09/26/24 mg-hydrochlorothiazide 25 mg tablet atorvastatin 20 mg tablet 20 mg PO HS Cholesterol 08/10/21 09/26/24 Previous Rx's ?Medication ?Instructions ?Recorded cephalexin 500 mg capsule 500 mg PO QID 10 days #40 caps 09/02/24 cephalexin 500 mg tablet 500 mg PO BID 7 days #14 tabs 11/28/24 Allergies Allergy/AdvReac Type Severity Reaction Status Date / Time Penicillins (PENICILLINS) Allergy Severe SWELLING Verified 09/26/24 13:19 PFSH <Lynn Rodríguez ([facility] [place]), CRITICAL POWER INSTALL TECHNICIAN - Last Filed: 11/28/24 20:17> PFS Disclaimer: The information contained in this section may have been updated after the patient was seen, as this information can be updated by other users. Medical History , CRITICAL POWER INSTALL TECHNICIAN) History of hyperlipidemia History of gastroesophageal reflux (GERD) History of hypertension History of diabetes mellitus Surgical History , CRITICAL POWER INSTALL TECHNICIAN) History of colonoscopy Family History , CRITICAL POWER INSTALL TECHNICIAN) Family history of MD (myocardial infarction) Family history of brain cancer Social History , CRITICAL POWER INSTALL TECHNICIAN) Smoking Status: Never smoker second hand exposure: No alcohol intake: current alcohol intake frequency: holidays/special occasions only substance use type: denies use current occupational status: employed Travel in the last 8 weeks: None household members: spouse housing: house current occupation: [employer] current occupational exposures/hazards: No caffeine: Yes Have you lived/traveled outside US in past 30 days?: No Contact w/someone who lives/traveled outside US past 30 days?: No Exposure to someone with infectious disease in past 14 days?: No Do you have a fever (greater than 100.4 F or 38 C)?: No Have you tested positive for COVID-19: No Exposed to someone with COVID-19 in past 14 days?: No Do you have a sore throat?: No Do you have a cough?: No Do you have any weakness?: No Do you have any diarrhea?: No Are you experiencing any unusual bleeding?: No Do you have any muscle aches/pain?: No Do you have any abdominal pain?: No Are you experiencing loss of taste or smell?: No Other Medical History Have you received the Flu Vaccine for this season: No Have you received the Pneumonia Vaccine: No <Zenajoel judd ([facility] [place]), CRITICAL POWER INSTALL TECHNICIAN - Last Filed: 11/28/24 20:17> ROS Obtained: Yes Systems reviewed as appropriate & no additional complaints except as documented Integumentary/Breasts Skin/Breast: Reports system reviewed and no additional complaints, except as documented, Reports as per HPI, Reports wounds and Reports other Physical Exam <Lynn Rodríguez ([facility] [place]), CRITICAL POWER INSTALL TECHNICIAN - Last Filed: 11/28/24 20:17> General General appearance: alert and in no apparent distress Eye Eye exam: Present normal appearance and PERRL ENT ENT exam: Present normal exam Respiratory Respiratory exam: Present normal lung sounds bilaterally Cardiovascular Cardiovascular exam: Present regular rate and normal rhythm Neurological Exam Neurological exam: Present alert and oriented X3 Skin Skin exam: Present warm Expanded Skin Exam Type of lesion: Present laceration Distribution: LUE Body image: 2 1. Laceration Medical Decision Making <Lynn Rodríguez ([facility] [place]), CRITICAL POWER INSTALL TECHNICIAN - Last Filed: 11/28/24 20:17> Medical Records Medical records reviewed: Yes I reviewed the patient's medical records. Screening: Per USPSTF and CDC recommendations, given the prevalence of disease in our region, it is our hospital?s policy to screen for HIV and viral Hepatitis for all patients aged 18 and over and those with ongoing risk factors. Calvin Inquiry Pt receiving controlled substance: No Calvin was queried for this patient: No Vital Signs: 11/28/24 18:57 11/28/24 19:00 11/28/24 19:30 Temperature 98.9 F Temperature Source Oral Pulse Rate 69 66 Pulse Rate [Right Radial] 79 Respiratory Rate 16 16 Blood Pressure 160/76 H 172/90 H Blood Pressure [Left Arm] 190/109 H Blood Pressure Mean Blood Pressure Mean [Left Arm] 136 Blood Pressure Source Blood Pressure Source [Left Arm] Automatic Cuff Blood Pressure Position Blood Pressure Position [Left Arm] Supine 02 Sat by Pulse Oximetry 95 95 96 Oxygen Delivery Method Room Air 11/28/24 20:00 11/28/24 20:19 Temperature 98.1 F Temperature Source Oral Pulse Rate 66 74 Pulse Rate [Right Radial] Respiratory Rate 18 18 Blood Pressure 154/74 H 154/74 H Blood Pressure [Left Arm] Blood Pressure Mean 100 Blood Pressure Mean [Left Arm] Blood Pressure Source Automatic Cuff Blood Pressure Source [Left Arm] Blood Pressure Position Sitting Blood Pressure Position [Left Arm] 02 Sat by Pulse Oximetry 95 Oxygen Delivery Method Room Air Lab Data Lab results reviewed: Yes I reviewed the patient's lab results. Medical Decision Narrative: In summary patient is a 59-year-old male who presents to the emergency department for evaluation of laceration to left lower leg. Patient is hemodynamically stable upon arrival, afebrile. Laceration noted to the left lower leg. Differential diagnosis includes laceration. Initial inventions include 10 sutures placed. Upon repeat evaluation 10 sutures placed. Given this patient appropriate for discharge at this time follow-up in 7 to 10 days to have sutures removed. <Brock Escobedo MD - Last Filed: 11/29/24 00:22> Vital Signs: 11/28/24 18:57 11/28/24 19:00 11/28/24 19:30 Temperature 98.9 F Temperature Source Oral Pulse Rate 69 66 Pulse Rate [Right Radial] 79 Respiratory Rate 16 16 Blood Pressure 160/76 H 172/90 H Blood Pressure [Left Arm] 190/109 H Blood Pressure Mean Blood Pressure Mean [Left Arm] 136 Blood Pressure Source Blood Pressure Source [Left Arm] Automatic Cuff Blood Pressure Position Blood Pressure Position [Left Arm] Supine 02 Sat by Pulse Oximetry 95 95 96 Oxygen Delivery Method Room Air 11/28/24 20:00 11/28/24 20:19 Temperature 98.1 F Temperature Source Oral Pulse Rate 66 74 Pulse Rate [Right Radial] Respiratory Rate 18 18 Blood Pressure 154/74 H 154/74 H Blood Pressure [Left Arm] Blood Pressure Mean 100 Blood Pressure Mean [Left Arm] Blood Pressure Source Automatic Cuff Blood Pressure Source [Left Arm] Blood Pressure Position Sitting Blood Pressure Position [Left Arm] 02 Sat by Pulse Oximetry 95 Oxygen Delivery Method Room Air Medical Decision Narrative: In summary patient is a 59-year-old male who presents to the emergency department for evaluation of laceration to left lower leg. Patient is hemodynamically stable upon arrival, afebrile. Laceration noted to the left lower leg. Differential diagnosis includes laceration. Initial inventions include 10 sutures placed. Upon repeat evaluation 10 sutures placed. Given this patient appropriate for discharge at this time follow-up in 7 to 10 days to have sutures removed. I was consulted by the AUDREY, and we discussed the complexity of the problems being addressed. I approved the treatment and management plan for this patient's care in the Emergency Department, thus performing a substantive portion of the medical decision making. Brock Escobedo MD Procedures <Lynn Rodríguez ([facility] [place]), CRITICAL POWER INSTALL TECHNICIAN - Last Filed: 11/28/24 20:17> Laceration Laceration 1: Site: lower extremity Side (If applicable): left Size (cm): 3 Description: flap Depth: simple, single layer Local Anesthetic: lidocaine 1% Amount of anesthesia used (mL): 3 Pre-repair: wound explored, irrigated extensively and deep structures intact Skin layer closed with: nylon Size (cm): 4-0 Number of sutures: 10 Critical Care <Lynn Rodríguez ([facility] [place]), CRITICAL POWER INSTALL TECHNICIAN - Last Filed: 11/28/24 20:17> Critical Care Time Critical Care Time: No
[2024-11-28 20:00] VITALS: BP 154/74; PULSE 66; RESP 18; O2SAT 95
[2024-11-28 20:19] VITALS: BP 154/74; PULSE 74; RESP 18; TEMP 36.7; O2SAT 98
--- OUTSIDE RECORDS SUMMARY | 2024-11-29 22:30 | XMS_ITS | Clinical Summary ---
Author Organization [facility] , [facility] Address [address] [place] [address] Phone Care Team Providers Care Scrap Drop Operator Name Role Phone MATT MELGAR, KENRICK Unavailable [phone] Tamra MELGAR, Joe Wolf Unavailable [phone] Reason for Visit and Chief Complaint The Chief Complaint is: RIGHT SHOULDER PAIN Problems Includes: Problems addressed during this encounter and other active Problems Current Visit Onset Date Resolved Date Provider Seng horner Status Joint Pain, Localized in the Right Shoulder 05/29/2024 Alban Morrell PA-C Active Last Documented On 4 2:09PM ; [facility], [facility] Plan of Treatment Pending Tests Order Diagnosis Results Due Ordering P rovider Therapy - Physical Therapy Shoulder Overweight 05/29/24 Alban Morrell PA-C Last Documented On 4 3:13PM ; [facility], [facility] Instructions to patient Lose weight Last Documented On 4 2:12PM ; [facility], [facility] Assessments Includes: Assessments from this encounter Findings - Overweight - Last Documented On 05/29/2024 3:13PM ; [facility], [facility] Instructions Includes: Instructions from this encounter Instructions to patient Lose weight Last Documented On 4 2:12PM ; [facility], [facility] Medical Equipment - Implanted Devices Includes: Current Devices No Medical Equipment Recorded Medications Includes: Medications discussed during this encounter and other current Medications Current Medications (continue as prescribed) Atorvastatin Calcium 20 MG Oral Tablet 05/14/2024 Pr ovider: KENRICK GUTIERREZ MD Diagnosis: Last Documented On 4 2:21PM By Deann Taveras ; [facility], [facility] Omeprazole 40 MG Oral Capsule Delayed Release 05/14/20 Provider: KENRICK GUTIERREZ MD Diagnosis: Last Documented On 4 2:21PM By Deann Taveras ; [facility] Celecoxib 200 MG Oral Capsule 02/16/2024 Provider: KENRICK GUTIERREZ MD Diagnosis: Last Documented On 4 2:21PM By Deann Taveras ; [facility] Medications Administered Includes: Administered Medications from this encounter No Administered Medications Recorded Vital Signs Includes: Vital Signs from this encounter Vital Name 05/29/2024 02:11P Height (in) 75 Weight (lb) 415 Body Mass Index 51.9 Body Surface Area 3 Note: KL Last Documented: On 05/29/2024 2:12PM ; [facility] Results Includes: Results discussed during this encounter No Results Recorded For Specified Dates History of Present Illness Includes: History of Present Illness from this encounter RAHEL OHARA is a 58 year old male. - Symptoms POPPING. - Allergy list reviewed - Problem list reviewed - Medication list reviewed - Patient pain level from 1-10: 1 - Yes, previous treatment. JOSELITO PIZANO - History of Physical Therapy - - Review of medications documented 58-year-old male here for evaluation of his right shoulder pain. The patient states he had shoulder issue several years ago, contributed this to impingement, he rehabbed it for about 5-6 weeks and the pain resolved. Last 4-6 months he has had worsening shoulder pain. Denies anytrauma to the shoulder. When his shoulder began bothering him he was also having issues with what he describes as a pinched nerve on the left side of his neck. He went to physical therapy for his neck issues, this pain resolved but in the meantime his right shoulder pain gotten worse. Three weeks ago he was reaching behind his back and felt a pop in his shoulder. This radiated down his biceps. This pain has gotten a little better since the onset of the pain. Denies any numbness and tingling in the right arm. The patient was had an MRI of the right shoulder. He was also had about 3 or 4 visits of physical therapy for the right shoulder. Social History Description Last Updated Caffeine use 05/29/2024 Last Documented On 4 3:13PM ; [facility] No recent change in diet 05/29/2024 Last Documented On 4 3:13PM ; [facility] Not a current smoker. 05/29/2024 Last Documented On 4 3:13PM ; [facility], [facility] Not exercising regularly 05/29/2024 Last Documented On 4 3:13PM ; [facility], [facility] Not using alcohol 05/29/2024 Last Documented On 4 3:13PM ; [facility], [facility] Not using drugs 05/29/2024 Last Documented On 4 3:13PM ; [facility], [facility] Smoking Status Unknown Procedures and Surgical History Includes: Procedures from this encounter Procedures Code Diagnosis Performing Provider Service L ocation Service Date an MRI was performed 44493 Last Documented On 4 2:22PM ; [facility], [facility] Surgical History Last Updated History of back surgery 05/29/2024 Last Documented On 4 3:13PM ; [facility], [facility] Medical History Includes: Medical History addressed during this encounter Description Last Updated History of arthritis 05/29/2024 Last Documented On 4 3:13PM ; [facility], [facility] History of Heartburn / Acid Reflux 05/29 Last Documented On 4 3:13PM ; [facility], [facility] History of hepatitis 05/29/2024 Last Documented On 4 3:13PM ; [facility], [facility] History of Sleep Apnea 05/29/2024 Last Documented On 4 3:13PM ; [facility], [facility] Family History Includes: Family History addressed during this encounter Description Last Updated Family history of cancer 05/29/2024 Last Documented On 4 3:13PM ; [facility], [facility] Review of Systems Includes: Review of Systems from this encounter Systemic: Feeling tired. No recent weight loss and no recent weight gain. Head: No headache and no sinus pain. Eyes: No vision problems, no Cataracts, no Glasses/Contacts, and no Glaucoma. Otolaryngeal: Hearing loss and tinnitus. Cardiovascular: No chest pain or discomfort, no palpitations, no Hypertension, and no High Cholesterol. Pulmonary: No daytime asthma symptoms and no chronic cough. No wheezing. Gastrointestinal: No heartburn and no abdominal pain. No Indigestion, no Peptic Ulcer, no GI Stomach Bleed, and no Ulcers. Acid Reflux. Endocrine: No hot flashes, no muscle weakness, no Diabetes, no Hypothyroid, and no Hyperthyroid. Hematologic: No easy bleeding, no tendency for easy bruising, and no Anemia. Musculoskeletal: Arthritis and lower back pain. No soft tissue swelling. Pain localized to one or more joints. Neurological: No dizziness, no convulsions, and no numbness. Psychological: No anxiety, no emotional lability, no depression, and no insomnia. Not crying for no reason. Skin: No dry skin. No Ulcers, no Scars, and no rash. Allergic and Immunologic: Complaint of seasonal allergic reaction. Mental Status Includes: Mental Status from this encounter Description No anxiety Functional Status Includes: Functional Status from this encounter No Functional Status Recorded Physical Exam Includes: Physical Exam from this encounter Allergies Includes: Active Allergies Substance Type Reaction Onset Date Resolved Date Statu s Pencillins Allergy 05/29/2024 Active Last Documented On 4 1:45PM ; [facility], [facility] Amoxicillin Allergy 05/29/2024 Active Last Documented On 4 1:45PM ; [facility], [facility] Encounters Encounter Provider Location Date Check-In Time Check-Out Time Diagnosis Physician Specified Alban Morrell PA-C [facility] 05/29/20 24 2:08PM 2:56PM Overweight Insurance Includes: Active Insurance Policies Plan Name Member ID Group # Subscriber Relationship Effect kiera Dates 1 - R [id number] MONIQUE OHARA Self Clinical Notes Includes: Clinical Notes from this encounter * Progress note Date Encounter Last Documented by 05/29/2024 Physician Specified Last selinumesiri leo on 05/29/2024; 3:13 PM, Alban Morrell PA-C; [facility], [facility] Active Problems & Conditions - Joint Pain, Localized in the Right Shoulder Chief Complaint The Chief Complaint is: RIGHT SHOULDER PAIN. History of Present Illness MONIQUE OHARA is a 58 year old male. - Symptoms POPPING. - Allergy list reviewed - Problem list reviewed - Medication list reviewed - Patient pain level from 1-10: 1 - Yes, previous treatment. JOSEL[facility] PIZANO - History of Physical Therapy - - Review of medications documented 58-year-old male here for evaluation of his right shoulder pain. The patient states he had shoulder issue several years ago, contributed this to impingement, he rehabbed it for about 5-6 weeks and the pain resolved. Last 4-6 months he has had worsening shoulder pain. Denies anytrauma to the shoulder. When his shoulder began bothering him he was also having issues with what he describes as a pinched nerve on the left side of his neck. He went to physical therapy for his neck issues, this pain resolved but in the meantime his right shoulder pain gotten worse. Three weeks ago he was reaching behind his back and felt a pop in his shoulder. This radiated down his biceps. This pain has gotten a little better since the onset of the pain. Denies any numbness and tingling in the right arm. The patient was had an MRI of the right shoulder. He was also had about 3 or 4 visits of physical therapy for the right shoulder. Current Medication - Atorvastatin Calcium 20 MG Oral Tablet 90 days, 0 refills - Celecoxib 200 MG Oral Capsule 90 days, 0 refills - Omeprazole 40 MG Oral Capsule Delayed Release 90 days, 0 refills Past Medical/Surgical History Diagnoses: Sleep Apnea Heartburn / Acid Reflux. Hepatitis. Arthritis Surgical: - Back surgery Social History Not a current smoker. Current diet: No recent change in diet. Caffeine use: Caffeine use. Alcohol: Not using alcohol. Drug Use: Not using drugs. Habits: Not exercising regularly. Allergies - Amoxicillin - Pencillins Family History Cancer Review Of Systems Systemic: Feeling tired. No recent weight loss and no recent weight gain. Head: No headache and no sinus pain. Eyes: No vision problems, no Cataracts, no Glasses/Contacts, and no Glaucoma. Otolaryngeal: Hearing loss and tinnitus. Cardiovascular: No chest pain or discomfort, no palpitations, no Hypertension, and no High Cholesterol. Pulmonary: No daytime asthma symptoms and no chronic cough. No wheezing. Gastrointestinal: No heartburn and no abdominal pain. No Indigestion, no Peptic Ulcer, no GI Stomach Bleed, and no Ulcers. Acid Reflux. Endocrine: No hot flashes, no muscle weakness, no Diabetes, no Hypothyroid, and no Hyperthyroid. Hematologic: No easy bleeding, no tendency for easy bruising, and no Anemia. Musculoskeletal: Arthritis and lower back pain. No soft tissue swelling. Pain localized to one or more joints. Neurological: No dizziness, no convulsions, and no numbness. Psychological: No anxiety, no emotional lability, no depression, and no insomnia. Not crying for no reason. Skin: No dry skin. No Ulcers, no Scars, and no rash. Allergic and Immunologic: Complaint of seasonal allergic reaction. Physical Findings - Vitals taken 05/29/2024 02:11 pm KL Height 75 in Weight 415 lbs Body Mass Index 51.9 kg/m2 Body Surface Area 3 m2 CONSTITUTIONAL: Well developed, well groomed, well nourished patient in no acute distress who appears stated age, height and weight. PSYCHIATRIC: The patient is alert and oriented to person, place, date and situation. Mood and affect are normal for current situation. NEUROLOGICAL: Sensation normal bilateral upper and lower extremities. LYMPHATIC: No pitting edema noted in the lower extremities. SKIN: No lesions noted on upper or lower extremities. Skin is dry, warm and with normal turgor. VASCULAR: No swelling in upper or lower extremities other than described below in extremity exam. Pulses normal in both upper (radial) extremities. GAIT AND STATION: Normal gait without assistive devices. Station normal. RIGHT SHOULDER Active Range of Motion: Abduction 160 Forward flexion 170 External rotation with arm at side 70 Internal rotation to low lumbar Passive Range of Motion not limited Stability: no anterior, no posterior, no inferior laxity Strength: Abduction/Forward flexion 4/5, Internal rotation 4/5, External rotation 4/5. Impingement sign positive Cross Arm test negative Funes's negative Speeds positive Yergason's positive Asymmetric biceps contour There is pain at the lateral acromion/subacromial space. AC joint is not tender. Bicipital Groove is tender. Deltoid is contractile. Cervical Spine: The patient does not have tenderness to palpation. There is no pain with flexion, extension, lateral rotation, or lateral bending of the cervical spine. Spurlings is negative. 5/5 BUE 2+ DTR BUE. Negative hoffmans User Defined 5 58-year-old male with right shoulder pain. The patient's MRI shows a low-grade articular sided partial tear of the supraspinatus and a full-thickness partial tear of the subscapularis. There is mild chronic subscapularis muscle atrophy. It was a complete full-thickness and retracted tear of the long head of the biceps. 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 There is no joint effusion. Moderate advanced acromioclavicular joint osteoarthritis. Long conversation with the patient about his MRI findings and shoulder pain. The patient has several issues identified on the MRI. Recommend a trial of conservative treatment. I will make a referral to physical therapy therapy. The patient has pain is getting better therefore I will defer a steroid injection at this time. The patient was currently taking Celebrex. Heat/ice and 10s unit may also help subside the pain. The patient does have a functional range motion and reasonable strength of the rotator cuff on exam. The patient was happy with this plan. I will have him follow up in 6 weeks for a clinical recheck Assessment - Overweight Previous Tests Imaging: MRI Scan: An MRI was performed. Counseling/Education - Tobacco non-user - Use of tobacco assessment performed - Lose weight Plan StartCited - Overweight Therapy/Physical Therapy: Shoulder Instructions: See PT order attached EndCited Notes This dictation was done with voice recognition software and may contain errors and omissions. Care Team - KENRICK GUTIERREZ MD - WEAPONS SPECIALIST
--- OUTSIDE RECORDS SUMMARY | 2024-11-29 22:30 | XMS_ITS ---
Author Organization [facility] , [facility] Address [address] [place] [address] Phone Care Team Providers Care Maintenance Of Way Clerk Name Role Phone AMTT MELGAR, KENRICK Unavailable [phone] Tamra MELGAR, Joe Wolf Unavailable [phone] Problems Includes: Active, inactive, and resolved Problems All Visits Onset Date Resolved Date Provider Condition S tatus Joint Pain, Localized in the Right Shoulder 05/29/2024 Alban Morrell PA-C Active Last Documented On 4 2:09PM ; [facility] Plan of Treatment Instructions to patient Lose weight Last Documented On 4 1:46PM ; [facility] Lose weight Last Documented On 4 2:12PM ; [facility] Assessments Includes: Assessments for all patient encounters Findings Encounter Date Overweight Follow Up with Alban Johnson 07/10/2024 Last Documented On 4 4:07PM ; [facility] Overweight Physician Specified with Alban Morrell PA-C 05/29/2024 Last Documented On 4 3:13PM ; [facility] Instructions Includes: Instructions for all patient encounters Instructions to patient Lose weight Last Documented On 4 1:46PM ; [facility] Lose weight Last Documented On 4 2:12PM ; [facility] Medical Equipment - Implanted Devices Includes: Current and historical Devices No Medical Equipment Recorded Medications Includes: Current and historical Medications Current Medications (continue as prescribed) Atorvastatin Calcium 20 MG Oral Tablet 05/14/2024 Pr ovider: KENRICK GUTIERREZ MD Diagnosis: Last Documented On 4 2:21PM By Deann Taveras ; [facility], [facility] Omeprazole 40 MG Oral Capsule Delayed Release 05/14/20 24 Provider: KENRICK GUTIERREZ MD Diagnosis: Last Documented On 4 2:21PM By Deann Taveras ; [facility], [facility] Celecoxib 200 MG Oral Capsule 02/16/2024 Provider: KENRICK GUTIERREZ MD Diagnosis: Last Documented On 4 2:21PM By Deann Taveras ; [facility] Medications Administered Includes: Administered Medications in patient's chart No Administered Medications Recorded Vital Signs Includes: Vital Signs from 11/30/2023 through 11/29/2024 Vital Name 07/10/2024 01:46P 05/29/2024 02: 11P Height (in) 75 75 Weight (lb) 415 415 Body Mass Index 51.9 51.9 Body Surface Area 3 3 Note: KL KL Last Documented: On 07/10/2024 1:47PM ; [facility] On 05/29/2024 2:12PM ; [facility] Results Includes: Results from 11/30/2023 through 11/29/2024 No Results Recorded For Specified Dates History of Present Illness History of Present Illness not supported for this document type No History of Present Illness Recorded Social History Description Last Updated Caffeine use 05/29/2024 Last Documented On 4 3:13PM ; [facility] No recent change in diet 05/29/2024 Last Documented On 4 3:13PM ; [facility] Not a current smoker. 05/29/2024 Last Documented On 4 3:13PM ; [facility], [facility] Not exercising regularly 05/29/2024 Last Documented On 4 3:13PM ; [facility], [facility] Not using alcohol 05/29/2024 Last Documented On 4 3:13PM ; [facility], [facility] Not using drugs 05/29/2024 Last Documented On 4 3:13PM ; [facility], [facility] Smoking Status Unknown Procedures and Surgical History Surgical History Last Updated History of back surgery 05/29/2024 Last Documented On 4 3:13PM ; [facility], [facility] Medical History Includes: Medical History in patient's chart Description Last Updated History of arthritis 05/29/2024 Last Documented On 4 3:13PM ; [facility], [facility] History of Heartburn / Acid Reflux 05/29 Last Documented On 4 3:13PM ; [facility], [facility] History of hepatitis 05/29/2024 Last Documented On 4 3:13PM ; [facility], [facility] History of Sleep Apnea 05/29/2024 Last Documented On 4 3:13PM ; [facility], [facility] Family History Includes: Family History in patient's chart Description Last Updated Family history of cancer 05/29/2024 Last Documented On 4 3:13PM ; [facility], [facility] Review of Systems Review of Systems not supported for this document type No Review of Systems Recorded Mental Status Description No anxiety Functional Status No Functional Status Recorded Physical Exam Physical Exam not supported for this document type No Physical Exam Recorded Allergies Includes: Active, inactive, and resolved Allergies Substance Type Reaction Onset Date Resolved Date Statu s Pencillins Allergy 05/29/2024 Active Last Documented On 4 1:45PM ; [facility], [facility] Amoxicillin Allergy 05/29/2024 Active Last Documented On 4 1:45PM ; [facility], [facility] Encounters Includes: Encounters from 11/30/2023 through 11/29/2024 Encounter Provider Location Date Check-In Time Check-Out Time Diagnosis Follow Up Alban Morrell PA-C [facility] 07/10/20 24 1:43PM 2:28PM Overweight Physician Specified Alban Morrell PA-C [facility] 05/29/20 24 2:08PM 2:56PM Overweight Insurance Includes: Active Insurance Policies Plan Name Member ID Group # Subscriber Relationship Effect kiera Dates 1 - R [id number] [facility] Clinical Notes Includes: Signed Clinical Notes starting from 08/05/2022 * Progress note Date Encounter Last Documented by 07/10/2024 Follow Up Last documented on 07/10/2024; 4:07 PM, Alban Abad; [facility], [facility] Active Problems & Conditions - Joint [...] of medications documented 58-year-old male here for follow-up of his right shoulder. The patient has a small partial tear of the supraspinatus, larger partial tear of the subscapularis and rupture of the long head of the biceps. He also has a degenerative changes as well as a degenerative labral tear. These were identified on a recent MRI. The patient was went to therapy. Shoulders overall feeling much better since the time of the worsening shoulder pain when he likely ruptured his biceps tendon. The patient feels that he was doing most all daily activities without any significant issues. He was very happy with the where shoulders at symptomatically. Current Medication - Atorvastatin Calcium 20 MG [...] allergic reaction. Physical Findings - Vitals taken 07/10/2024 01:46 pm KL Height 75 in Weight 415 [...] posterior, no inferior laxity Strength: Abduction/Forward flexion 4+/5, Internal rotation 4+/5, External rotation 4+/5. Impingement sign mildly positive Cross Arm test negative Funes's negative Speeds mildly positive Yergason's mildly positive Asymmetric biceps contour There is mild pain at the lateral acromion/subacromial space. AC joint is not tender. Bicipital Groove is mildly tender. Deltoid is contractile. User Defined 5 58-year-old male with partial rotator cuff tears and a long head biceps rupture. The patient was symptoms are well tolerated at this point. He has good range of motion of the shoulder and reasonable strength of the shoulder. He was doing all daily activities without significant issue. Do not feel he needs an injection at this time as his symptoms are much better. Encouraged him to continue his home exercise program, he may ache. Therapy if he feels that he was no longer seeing benefit. We will have the patient follow-up as needed moving forward. Assessment - Overweight Previous Tests Imaging: MRI Scan: An MRI was performed. Counseling/Education - Tobacco non-user - Use of tobacco assessment performed - Lose weight Notes This dictation was done with voice recognition software and may contain errors and omissions. Care Team - KENRICK GUTIERREZ MD - DEMENTIA PROGRAM DIRECTOR * Progress note Date Encounter Last Documented by 05/29/2024 Physician Specified Last herrera bailey on 05/29/2024; 3:13 PM, Alban Morrell PA-C; [facility], [facility] Active Problems & Conditions - Joint [...] long head of the biceps. There is [id number] glenohumeral joint arthritis and a chronic tear [...] Care Team - KENRICK GUTIERREZ MD - DEMENTIA PROGRAM DIRECTOR
== END 2024-11-28 20:21 | disposition home or self-care (01) ==
PROVIDERS: Emergency Provider Emergency Medicine; PCP Internal Medicine Adolescent Medicine
DX: S81.822A Laceration with foreign body, left lower leg, initial encounter (principal); W20.8XXA Other cause of strike by thrown, projected or falling object, initial encounter
CPT/HCPCS: 12002; 99283

== ENCOUNTER 2025-08-21 13:00 | Outpatient (RCR) | payer OTHER, SELFPAY | END 2025-08-21 23:59 | disposition home or self-care (01) | LOC: PT 13:00 | PROVIDERS: PCP Internal Medicine Adolescent Medicine; Visit Provider Orthopaedic Surgery | DX: Z47.89 Encounter for other orthopedic aftercare (principal); Z96.651 Presence of right artificial knee joint | CPT/HCPCS: 97016; 97110; 97140; 97162; 97530 ==